=== PATIENT | female | born 1980 ===

== ENCOUNTER 2017-02-16 12:19 | Emergency (ER) | payer OTHER ==
[2017-02-16 12:25] VITALS: RESP 16
--- NOTE | 2017-02-16 13:02 | ED PDOC ---
HPI: General Adult Chief Complaint (Provider): Painful Lump in the neck History Per: Patient History/Exam Limitations: no limitations Onset/Duration Of Symptoms: Days Have you had recent travel within the past 21 days to any of the following countries: [place], [place], [place] or [place]?: No Current Symptoms Are (Timing): Still Present <Alla Villa - Last Filed: 02/16/17 14:38> <Kailee Koch - Last Filed: 02/16/17 15:26> Time Seen by Provider: 02/16/17 12:31 Chief Complaint (Nursing): Abnormal Skin Integrity Additional Complaint(s): Rose Mary Grace, a 37 year old female, presents to the ED with a painful lump in her neck x2 weeks. The patient states that she noticed the bump turned red and this prompted her to visit her community clinic, who then told her to go the emergency department. She states when she first noticed the lump it was neither red nor painful. The patient states that she thought the bump was because of stress. She reports that she thought heat or cold would make the lump go away but non of those options worked. She further states that she started to have a fever but took tylenol and it went away. Denies nausea, vomiting but does note some dizziness. The patient further states that she also had a sore throat and few days of diarrhea. Battery Tester: Hari Camejo ([id number]) (Alla Villa) Past Medical History Reviewed: Historical Data, Nursing Documentation, Vital Signs - Medical History PMH: No Chronic Diseases - Surgical History Surgical History: Cholecystectomy Other surgeries: Breast reduction surgery; Tumor removal from uterus. - Family History Family History: States: Unknown Family Hx - Living Arrangements Living Arrangements: With Family - Social History Current smoker - smoking cessation education provided: No Alcohol: None Drugs: Denies - Immunization History Hx Tetanus Toxoid Vaccination: No Hx Influenza Vaccination: No <Alla Villa - Last Filed: 02/16/17 14:38> <Kailee Koch - Last Filed: 02/16/17 15:26> Vital Signs: Last Vital Signs Temp 98.2 F 02/16/17 12:22 Pulse 82 02/16/17 12:22 Resp 16 02/16/17 12:22 BP 129/59 L 08/18/17 12:22 Pulse Ox 99 02/16/17 14:42 - Home Medications Home Medications: Ambulatory Orders Medication Instructions Recorded Cephalexin [cephalexin] 500 mg PO BID #20 cap 02/16/17 Clindamycin [Cleocin] 300 mg PO TID #30 cap 02/16/17 - Allergies Allergies/Adverse Reactions: Allergies Allergy/AdvReac Type Severity Reaction Status Date / Time No Known Allergies Allergy Verified 02/16/17 13:01 Review of Systems ROS Statement: Except As Marked, All Systems Reviewed And Found Negative Constitutional: Positive for: Fever Gastrointestinal: Positive for: Diarrhea (diarrhea for a few days). Negative for: Nausea, Vomiting Musculoskeletal: Positive for: Other Skin: Positive for: Other (Painful lump in neck) <Alla Villa - Last Filed: 02/16/17 14:38> Physical Exam - Reviewed Nursing Documentation Reviewed: Yes Vital Signs Reviewed: Yes - Physical Exam Appears: Positive for: Non-toxic, No Acute Distress Head Exam: Positive for: ATRAUMATIC, NORMAL INSPECTION, NORMOCEPHALIC Skin: Positive for: Normal Color, Warm, Dry. Negative for: Rash Eye Exam: Positive for: Normal appearance, EOMI, PERRL ENT: Positive for: Normal ENT Inspection. Negative for: Sinus Pain/Drainage ( no sinus tenderness), Pharyngeal Erythema Neck: Positive for: Supple, Decreased ROM (Right side SCM along lymph nodes;no swelling; non-mobile; no other lymphnodes; no erythema;some tenderness). Negative for: Normal (No C-spine tenderness;No lymph node swelling) Cardiovascular/Chest: Positive for: Regular Rate, Rhythm, Chest Non Tender. Negative for: Tachycardia Respiratory: Positive for: Normal Breath Sounds. Negative for: Rales, Rhonchi, Wheezing, Respiratory Distress Gastrointestinal/Abdominal: Positive for: Normal Exam, Bowel Sounds, Soft. Negative for: Tenderness, Mass, Guarding, Rebound Back: Positive for: Normal Inspection. Negative for: L CVA Tenderness, R CVA Tenderness Extremity: Positive for: Normal ROM. Negative for: Tenderness, Pedal Edema, Deformity, Swelling Neurologic/Psych: Positive for: Alert, Oriented, Gait. Negative for: Motor/ Sensory Deficits <Alla Villa - Last Filed: 02/16/17 14:38> - Laboratory Results Result Diagrams: 02/16/17 13:23 02/16/17 13:23 - ECG O2 Sat by Pulse Oximetry: 99 (RA) Pulse Ox Interpretation: Normal - Radiology X-Ray: Read By Radiologist Nexus Criteria: Negative <Alla Villa - Last Filed: 02/16/17 14:38> - Laboratory Results Result Diagrams: 02/16/17 13:23 02/16/17 13:23 <Kailee Koch - Last Filed: 02/16/17 15:26> Medical Decision Making <Alla Villa - Last Filed: 02/16/17 14:38> <Kailee Koch - Last Filed: 02/16/17 15:26> Medical Decision Makin Initial Impression: 37 year old female presenting with painful lump in the neck Initial Plan: * CT Neck Soft tissue w/o contrast * Comp Metabolic Panel * Upreg * CBC * Blood Culture * Reevaluation base don CT results and fairly unremarkable labs results will treat as a superficial abscess and give IV abx. however pt will need f/u with pmd for monitoring and further eval Scribe Attestation Documented by Lulú Phillips acting as a scribe for Alla Villa PA-C. MD Scribe Attestation All medical record entries made by the Scribe were at my direction and personally dictated by me. I have reviewed the chart and agree that the record accurately reflects my personal performance of the history, physical exam, medical decision making, and the department course for this patient. I have also personally directed, reviewed, and agree with the discharge instructions and disposition. (Alla Villa) CT showed "There is an elliptical shaped proteinaceous fluid collection located within the right posterior neck that exhibits a thick walled rim of enhancement an central low-attenuation. This could represent proteinaceous fluid such as phlegmon or abscess possibly of bacterial origin however tuberculosis should be excluded as well. . The possibility of malignancy or necrotic malignant adenopathy not excluded. . Note that these findings were discussed with emergency room PA Mamta Villa at approximately 2:40 p.m. with written down and read back verification." Per PA, patient was given detailed follow-up instructions. (Kailee Koch) Disposition - Patient ED Disposition Is Patient to be Admitted: No Counseled Patient/Family Regarding: Studies Performed, Diagnosis, Need For Followup, Rx Given - Disposition Disposition: Routine/Home Disposition Time: 14:41 <Alla Villa - Last Filed: 02/16/17 14:38> <Kailee Koch - Last Filed: 02/16/17 15:26> - Clinical Impression Clinical Impression: Abscess - Disposition Referrals: [facility] [Outside] [facility] [Outside] Condition: STABLE Prescriptions: Cephalexin [cephalexin] 500 mg PO BID #20 cap Clindamycin [Cleocin] 300 mg PO TID #30 cap Instructions: Abscess (ED) Forms: [employer] (Serbian), [facility] ED School/Work Excuse Print Language: CITIZEN OF [place]
[2017-02-16 13:31] LABS: BASO % 0.5 % (0.0-2.0); EOS # 0.1 K/uL (0.0-0.7); LYMPH # 1.5 K/uL (1.0-4.3); LYMPH % 22.8 % (20.0-40.0); MEAN CELL VOLUME 81.8 fl (81.0-99.0); MEAN CORPUSCULAR HEMOGLOBIN 26.6 pg (27.0-31.0); MEAN CORPUSCULAR HGB CONC 32.5 g/dL (33.0-37.0); MEAN PLATELET VOLUME 7.5 fl (7.2-11.7); MONO # 0.4 K/uL (0.0-0.8); MONO % 6.8 % (0.0-10.0); NEUT # 4.6 K/uL (1.8-7.0); NEUT % 68.9 % (50.0-75.0); RED CELL DISTRIBUTION WIDTH 13.7 % (11.5-14.5); WHITE BLOOD COUNT 6.6 K/uL (4.8-10.8)
[2017-02-16 13:41] LABS: ALB/GLOB RATIO 1.4 (1.0-2.1); ALKALINE PHOSPHATASE 84 U/L (38-126); ALT/SGPT 28 U/L (9-52); AST/SGOT 25 U/L (14-36); BILIRUBIN,TOTAL 0.4 mg/dl (0.2-1.3); BLOOD UREA NITROGEN 9 mg/dl (7-17); CALCIUM 9.5 mg/dL (8.4-10.2); CARBON DIOXIDE 27 mmol/L (22-30); CHLORIDE 103 mmol/L (98-107); GFR AFRICAN-AMERICAN > 60; GLUCOSE,RANDOM 95 mg/dL (65-105); POTASSIUM 3.9 MMOL/L (3.6-5.0); SODIUM 142 mmol/l (132-148); TOTAL PROTEIN 7.6 G/DL (6.3-8.2)
[2017-02-16] MEDS ORDERED: Iohexol 300 100 ML IJ ONE (13:59)
--- NOTE | 2017-02-16 14:49 | CT ---
PROCEDURE: CT scan neck dated 02/16/2017 HISTORY: Lesions noted to right side of neck/painful/nonmobile COMPARISON: No prior TECHNIQUE: Contiguous helical/ transaxial sections of the neck performed following intravenous injection of approximately 95 cc Omnipaque 300 contrast material. Additional 2 dimensional sagittal and coronal reformats provided. Radiation dose: DLP 392.25 mGy-cm This CT exam was performed using one or more of the following dose reduction techniques: Automated exposure control, adjustment of the mA and/or kV according to patient size, and/or use of iterative reconstruction technique. . FINDINGS: Findings: Current study reveals the presence of a relatively large approximately 2.8 x 1.7 x 1.95 cm elliptical shaped low-attenuation focus in the posterior aspect right neck that exhibits a thick walled rind of enhancement and central area of low attenuation. Hounsfield units centrally range from single to mid-upper 20s suggesting proteinaceous fluid. This could represent a subcutaneous phlegmon/abscess ; rule out bacterial versus possible sequela of granulomatous disease process such as tuberculosis. . Malignancy and/or necrotic adenopathy would be somewhat less likely in this age group though not completely excluded. Clinical correlation recommended. There is also small calcific density along the at anterior margin of this suspected phlegmon/abscess. Overlying mild skin thickening noted. No other from suspected proteinaceous fluid collections. There are multiple relatively small bilateral cervical lymph nodes within posterior cervical, jugulodigastric, submandibular and submental regions bilaterally. One or 2 of these left-sided posterior cervical focal lymph nodes contain calcification. Left-sided posterior cervical lymph nodes also appear to contain calcification cervical. Parotid and submandibular glands unremarkable. Thyroid gland appears normal though poorly seen due to crossing streak and beam hardening artifact arising from dense clavicles and shoulder girdles. The cervical vasculature unremarkable. The oral cavity is partially obscured by crossing streak and beam hardening artifact arising from dental amalgam. The palatine tonsils appear relatively normal without evidence of peritonsillar abscess formation. Some asymmetry of the vallecular likely due to some encroachment from lingular tonsils and possibly some residual/ retained secretion. Free margin of the epiglottis unremarkable. Pyriform sinuses are relatively symmetric. Lung apices are clear. Visualized paranasal sinuses are well-developed. Moderate mucosal thickening left sphenoid sinus with sclerosis and thickening of the left posterolateral wall. . Mastoid air complexes are clear. There appears to be some minimal biapical pleural thickening however the lung apices are otherwise clear without evidence of pneumothorax. Impression: There is an elliptical shaped proteinaceous fluid collection located within the right posterior neck that exhibits a thick walled rim of enhancement an central low-attenuation. This could represent proteinaceous fluid such as phlegmon or abscess possibly of bacterial origin however tuberculosis should be excluded as well. . The possibility of malignancy or necrotic malignant adenopathy not excluded. . Note that these findings were discussed with emergency room SHARYN Villa at approximately 2:40 p.m. with written down and read back verification.
[2017-02-16] MEDS ORDERED: cefTRIAXone (Rocephin) 1 gm Inj ONE (15:02)
[2017-02-16 16:33] VITALS: BP 122/63; PULSE 76; TEMP 98.3; O2SAT 100
== END 2017-02-16 16:32 | disposition home or self-care (01) ==
LOC: H.ER 12:19
DX: L02.11 Cutaneous abscess of neck (principal)
CPT/HCPCS: 70491; 80053; 81025; 85025; 87040; 96365; 99283; J0696; Q9967

== ENCOUNTER 2017-03-10 14:17 | Emergency (ER) | payer SELFPAY ==
[2017-03-10 14:25] VITALS: TEMP 98; O2SAT 99
[2017-03-10] MEDS ORDERED: Sodium Chloride 0.9% 1,000 ML IV STA (15:05)
--- NOTE | 2017-03-10 15:47 | ED PDOC ---
HPI: CCC, URI, Sore Throat Time Seen by Provider: 03/10/17 14:17 Chief Complaint (Nursing): Wound Check Chief Complaint (Provider): Wound Check History Per: Patient History/Exam Limitations: no limitations Onset/Duration Of Symptoms: Days (x9) Additional Complaint(s): Rose Mary Grace is a 37 year old female who presents to the emergency department for a wound evaluation of a right neck abscess associated with cough , urine frequency, generalized body aches and throat pain that was incised and drained 9 days ago. Denied any fever or chills. Patient stated she was recently discharged from [facility] and currently on Omnicef but advised by PCP to return to ED for a re-evaluation of wound. PMD: Giorgio Reilly MD Past Medical History Reviewed: Historical Data, Nursing Documentation, Vital Signs Vital Signs: Last Vital Signs Temp 98 F 03/10/17 14:21 Pulse 94 H 03/10/17 14:21 Resp 18 03/10/17 14:21 BP 145/75 03/10/17 14:21 Pulse Ox 99 03/10/17 15:56 - Medical History PMH: Denies: Chronic Kidney Disease - Surgical History Surgical History: Cholecystectomy - Family History Family History: States: Unknown Family Hx - Social History Current smoker - smoking cessation education provided: No Alcohol: None Drugs: Denies - Immunization History Hx Tetanus Toxoid Vaccination: No Hx Influenza Vaccination: No - Home Medications Home Medications: Ambulatory Orders Medication Instructions Recorded No Known Home Med 03/02/17 - Allergies Allergies/Adverse Reactions: Allergies Allergy/AdvReac Type Severity Reaction Status Date / Time No Known Allergies Allergy Verified 02/16/17 13:01 Review of Systems ROS Statement: Except As Marked, All Systems Reviewed And Found Negative Constitutional: Positive for: Other (generalized body aches). Negative for: Fever, Chills ENT: Positive for: Throat Pain, Other (right neck abscess) Respiratory: Positive for: Cough Genitourinary Female: Positive for: Frequency Physical Exam - Reviewed Nursing Documentation Reviewed: Yes Vital Signs Reviewed: Yes - Physical Exam Appears: Positive for: Well, Non-toxic, No Acute Distress Head Exam: Positive for: ATRAUMATIC, NORMAL INSPECTION, NORMOCEPHALIC ENT: Positive for: Pharynx Is (mildly irritated). Negative for: Normal ENT Inspection Neck: Positive for: Normal (healing open abscess wound) Cardiovascular/Chest: Positive for: Regular Rate, Rhythm. Negative for: Chest Non Tender, Other (drainage or induration) Respiratory: Positive for: Normal Breath Sounds. Negative for: Decreased Breath Sounds, Crackles, Rales, Rhonchi, Wheezing, Respiratory Distress Neurologic/Psych: Positive for: Alert, manager therapy II-XII, Oriented - Laboratory Results Result Diagrams: 03/10/17 15:45 03/10/17 15:45 - ECG O2 Sat by Pulse Oximetry: 99 (RA) Pulse Ox Interpretation: Normal - Radiology X-Ray: Read By Radiologist (tonie) - Progress ED Course And Treament: NS 1 LITER WIDE OPEN TORADOL 15 MG IV X 1 DOSE RAPID STREP: NEG PATIENT IMPROVED IN ED. Medical Decision Making Medical Decision Making: Initial Impression: Wound check Initial Plan: * VBG * BMP * Urine dipstick * Urine * CBC * CXR * Toradol 15mg IVP * NS 1,000ml IV per 1,000mls/hr * Blood culture * Urine culture * Rapid strep * Urinalysis ~ Scribe Attestation: Documented by Kiersten Sarmiento, acting as a scribe for Stephanie Doss PA-C. Provider Scribe Attestation: All medical record entries made by the Scribe were at my direction and personally dictated by me. I have reviewed the chart and agree that the record accurately reflects my personal performance of the history, physical exam, medical decision making, and the department course for this patient. I have also personally directed, reviewed, and agree with the discharge instructions and disposition. Disposition - Clinical Impression Clinical Impression: Viral illness - Patient ED Disposition Is Patient to be Admitted: No - Disposition Disposition: Routine/Home Disposition Time: 17:51 Condition: FAIR Instructions: Viral Syndrome (ED) Forms: [employer] (Vincentian), [facility] ED School/Work Excuse Print Language: SLOVAK
[2017-03-10 15:56] LABS: VENOUS BLOOD GAS BASE EXCESS 4.5 mmol/L (0.0-2.0); VENOUS BLOOD GAS PCO2 59 mmHg (40-60); VENOUS BLOOD PH 7.34 (7.32-7.43)
[2017-03-10 16:02] LABS: BASO % 0.6 % (0.0-2.0); EOS # 0.1 K/uL (0.0-0.7); EOS % 1.6 % (0.0-4.0); HEMATOCRIT 37.1 % (34.0-47.0); LYMPH # 1.8 K/uL (1.0-4.3); LYMPH % 34.3 % (20.0-40.0); MEAN CELL VOLUME 81.8 fl (81.0-99.0); MEAN CORPUSCULAR HEMOGLOBIN 26.6 pg (27.0-31.0); MEAN CORPUSCULAR HGB CONC 32.5 g/dL (33.0-37.0); MEAN PLATELET VOLUME 7.7 fl (7.2-11.7); MONO # 0.4 K/uL (0.0-0.8); MONO % 7.1 % (0.0-10.0); NEUT % 56.4 % (50.0-75.0); RED CELL DISTRIBUTION WIDTH 13.8 % (11.5-14.5); WHITE BLOOD COUNT 5.4 K/uL (4.8-10.8)
[2017-03-10 16:03] LABS: RBC URINE 3 /hpf (0-3); URINE BILIRUBIN NEGATIVE (NEGATIVE); URINE BLOOD NEGATIVE (NEGATIVE); URINE COLOR YELLOW (YELLOW); URINE GLUCOSE (UA) NEG (Normal); URINE KETONE TRACE mg/dL (NEGATIVE); URINE LEUKOCYTE ESTERASE NEG Leu/uL (Negative); URINE PROTEIN NEGATIVE (NEGATIVE); URINE UROBILINOGEN 0.2-1.0 mg/dL (0.2-1.0); WBC URINE 1 /hpf (0-5)
[2017-03-10 16:07] LABS: BLOOD UREA NITROGEN 13 mg/dl (7-17); CALCIUM 9.3 mg/dL (8.4-10.2); CARBON DIOXIDE 27 mmol/L (22-30); CHLORIDE 104 mmol/L (98-107); GFR AFRICAN-AMERICAN > 60; GLUCOSE,RANDOM 92 mg/dL (65-105); POTASSIUM 4.1 MMOL/L (3.6-5.0); SODIUM 141 mmol/l (132-148)
--- NOTE | 2017-03-10 16:17 | RAD ---
HISTORY: routine COMPARISON: No prior. TECHNIQUE: Chest PA and lateral FINDINGS: LUNGS: No active pulmonary disease. PLEURA: No significant pleural effusion identified. No pneumothorax apparent. CARDIOVASCULAR: Normal. OSSEOUS STRUCTURES: No significant abnormalities. VISUALIZED UPPER ABDOMEN: Normal. OTHER FINDINGS: None. IMPRESSION: No active disease.
[2017-03-10 18:05] VITALS: BP 117/83; PULSE 77; RESP 16
== END 2017-03-10 18:03 | disposition home or self-care (01) ==
LOC: H.ER 14:17
DX: Z48.00 Encounter for change or removal of nonsurgical wound dressing (principal); R05 Cough; B34.9 Viral infection, unspecified
CPT/HCPCS: 71020; 80048; 81003; 81025; 82803; 85025; 87040; 87070; 87086; 87430; 96361; 96374; 99284; J1885; J7040

== ENCOUNTER 2017-04-28 11:56 | Emergency (ER) | payer OTHER ==
[2017-04-28 12:00] VITALS: BP 117/54; PULSE 93; RESP 16; TEMP 98; O2SAT 100
[2017-04-28 12:20] VITALS: BMI 21.9
--- NOTE | 2017-04-28 12:26 | ED PDOC ---
Lower Extremity Pain/Injury Time Seen by Provider: 04/28/17 12:04 Chief Complaint (Nursing): Lower Extremity Problem/Injury Chief Complaint (Provider): Lower Extremity Problem/Injury History Per: Patient History/Exam Limitations: no limitations Onset/Duration Of Symptoms: Days (x4 days) Current Symptoms Are (Timing): Still Present Additional Complaint(s): A 37 y/o female presents to the emergency department complaining right ankle pain and swelling. Three days ago, she was stepping off the the bus when she felt popping in her right knee. Patient took Tylenol with no improvement. No other injuries or complaints. Past Medical History Reviewed: Historical Data, Nursing Documentation, Vital Signs Vital Signs: Last Vital Signs Temp 98.0 F 04/28/17 11:59 Pulse 93 H 04/28/17 11:59 Resp 16 04/28/17 11:59 BP 117/54 L 04/28/17 11:59 Pulse Ox 100 04/28/17 11:59 - Medical History PMH: No Chronic Diseases Denies: Chronic Kidney Disease - Surgical History Surgical History: Cholecystectomy Other surgeries: Ovarian Cyst - Family History Family History: States: Unknown Family Hx - Living Arrangements Living Arrangements: With Family - Social History Current smoker - smoking cessation education provided: No Alcohol: None Drugs: Denies - Immunization History Hx Tetanus Toxoid Vaccination: No Hx Influenza Vaccination: No - Home Medications Home Medications: Ambulatory Orders Medication Instructions Recorded Ibuprofen [Motrin Tab] 800 mg PO Q6H PRN #20 tab 04/28/17 - Allergies Allergies/Adverse Reactions: Allergies Allergy/AdvReac Type Severity Reaction Status Date / Time No Known Allergies Allergy Verified 02/16/17 13:01 Review of Systems Constitutional: Negative for: Fever Musculoskeletal: Positive for: Other (Right ankle swollen and pain in right knee ) Physical Exam - Reviewed Nursing Documentation Reviewed: Yes Vital Signs Reviewed: Yes - Physical Exam Appears: Positive for: Non-toxic, No Acute Distress Cardiovascular/Chest: Positive for: Regular Rate, Rhythm. Negative for: Murmur Respiratory: Positive for: Normal Breath Sounds. Negative for: Respiratory Distress Gastrointestinal/Abdominal: Positive for: Normal Exam, Bowel Sounds, Soft. Negative for: Tenderness Extremity: Positive for: Tenderness (tenderness to right lateral malleolus. Tenderness to medial and inferior right knee), Swelling (mild swelling to medial and inferior right knee). Negative for: Normal ROM (Decrease right knee flexion secondary to pain. FROM of right ankle ) Neurologic/Psych: Positive for: Alert, Oriented (x3) - ECG O2 Sat by Pulse Oximetry: 100 (RA) Pulse Ox Interpretation: Normal - Radiology X-Ray: Interpreted by Me, Viewed By Me X-Ray Interpretation: Other (No obvious fracture of the right knee) - Other Rad X-ray right ankle X-Ray: Interpreted by Me, Viewed By Me X-Ray Interpretation: No obvious fracture or dislocation Medical Decision Making Medical Decision Making: Time: 12:10 Initial Plan: --Knee x-ray --Right Ankle x-ray --Ibuprofen 600mg PO Time: 12:37 Clinical Impression: Ankle Injury, Knee Injury Upon provider evaluation patient is medically stable, and requires no further treatment in the ED at this time. Patient will be discharged home with Rx for Motrin 800mg PO. Counseling was provided and all questions were answered regarding diagnosis and need for follow up with PMD. There is agreement to discharge plan. Return if symptoms persist or worsen. Scribe Attestation: Documented by Pamela Doss , acting as a scribe for Yany Green PA-C Provider Scribe Attestation: All medical record entries made by the Scribe were at my direction and personally dictated by me. I have reviewed the chart and agree that the record accurately reflects my personal performance of the history, physical exam, medical decision making, and the department course for this patient. I have also personally directed, reviewed, and agree with the discharge instructions and disposition. Disposition - Clinical Impression Clinical Impression: Ankle injury, Knee injury - Patient ED Disposition Is Patient to be Admitted: No Counseled Patient/Family Regarding: Studies Performed, Diagnosis, Need For Followup, Rx Given - Disposition Disposition: Routine/Home Disposition Time: 13:05 Condition: STABLE Prescriptions: Ibuprofen [Motrin Tab] 800 mg PO Q6H PRN #20 tab PRN Reason: Pain Instructions: Ankle Sprain (ED) Forms: [employer] (Somali), [facility] ED School/Work Excuse
--- NOTE | 2017-04-28 13:02 | RAD ---
PROCEDURE: Right Knee Radiographs. HISTORY: knee pain, pop sensation when twisted ankle COMPARISON: None. FINDINGS: BONES: There is no acute displaced fracture or bone destruction. Bone alignment is normal. There is mild periarticular bone demineralization. JOINTS: There is mild degenerative osteoarthrosis in the medial compartment. JOINT EFFUSION: There is a small suprapatellar joint effusion. OTHER FINDINGS: None. IMPRESSION: No acute fracture or dislocation. 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
--- NOTE | 2017-04-28 13:02 | RAD ---
PROCEDURE: Right Ankle Radiographs. HISTORY: ankle pain, twisted 3 days ago COMPARISON: None FINDINGS: BONES: Bone alignment and mineralization are normal. There is no acute fracture or bone destruction. JOINTS: Normal. Ankle mortise maintained. Talar dome intact SOFT TISSUES: Normal. OTHER FINDINGS: None. IMPRESSION: No acute fracture or dislocation.
== END 2017-04-28 13:32 | disposition home or self-care (01) ==
LOC: H.ER 11:56
DX: S89.92XA Unspecified injury of left lower leg, initial encounter (principal); S99.911A Unspecified injury of right ankle, initial encounter; X50.9XXA Other and unspecified overexertion or strenuous movements or postures, initial encounter; Y92.89 Other specified places as the place of occurrence of the external cause

== ENCOUNTER 2017-05-31 07:02 | Day surgery (SDC) | payer SELFPAY ==
[2017-05-29 09:57] VITALS: BMI 25.2
[2017-05-31] MEDS ORDERED: Succinylcholine 200 mg/10 ml Inj IV ONE (07:30)
[2017-05-31] MEDS ORDERED: Midazolam 2 MG/2 ML VIAL ONE ×2 (07:30→12:37)
[2017-05-31] MEDS ORDERED: Propofol 10 mg/ml Inj (20 ML) ONE ×2 (07:35→12:43)
[2017-05-31] MEDS ORDERED: Phenylephrine 10 mg/ml Inj ONE (07:35)
[2017-05-31] MEDS ORDERED: ePHEDrine 50 mg/ml Inj ONE (07:35)
--- NOTE | 2017-05-31 07:55 | CP.SDSHP ---
Same Day Surgery H & P - History Proposed Procedure: excision of right lateral neck mass Pre-Op Diagnosis: lateral right neck mass - Previous Medical/Surgical History Pain: 2.Mild Pain Comments: neck mass first noticed 3 months ago, progressively enlarged Previous Surgical History: cholecystectomy, in vitro fertilization, ovarian cyst removal - Allergies Allergies: Allergies No Known Allergies Allergy (Verified 02/16/17 13:01) - Physical Exam General Appearance: WDWN NAD Vital Signs: Vital Signs 05/31/17 05/31/17 07:44 07:48 Temperature 98.4 F Pulse Rate 70 70 Respiratory 20 Rate Blood Pressure 104/59 L O2 Sat by Pulse 97 Oximetry Mental Status: Alert & Oriented x3 Neuro: WNL Heart: WNL Lungs: WNL GI: WNL - {Optional Preform as Required} Abdomen: WNL ENT: Other - Impression Impression: right lateral neck mass. currently no purulent discharge Pt. Evaluated Today:Candidate for Anesthesia & Procedure: Yes - Date & Time Date: 05/31/17 Time: 07:50 Short Stay Discharge - Short Stay Discharge Admitting Diagnosis/Reason for Visit: L03.221 Disposition: HOME/ ROUTINE Referrals: FAMILY PROVIDER,NO [Primary Care Provider] -
[2017-05-31] MEDS ORDERED: Lactated Ringer's 1,000 ML IV ONE (09:05)
[2017-05-31] MEDS ORDERED: Lidocaine 2% w Epi 1:100,000 Inj IJ ONE (12:19)
[2017-05-31] MEDS ORDERED: ceFAZolin IV 1 gm in Dextrose 0 GM/0 ML BAG IVPB ONE (12:19)
[2017-05-31] MEDS ORDERED: Lidocaine 1% Inj (20ml) ONE (12:19)
[2017-05-31] MEDS ORDERED: Lactated Ringer's 1,000 ML IV SCH (13:15)
--- NOTE | 2017-05-31 13:32 | PCM.SURG1 ---
Surgeon's Initial Post Op Note - Surgeon's Notes Surgeon: Dr Colon Gis Administrator: Dr Gonzalez PGY3 Type of Anesthesia: General IV Anesthesia Administered By: Dr Sultana Pre-Operative Diagnosis: right neck cyst Operative Findings: as above Post-Operative Diagnosis: as above Operation Performed: Excision of right lateral neck cyst Specimen/Specimens Removed: cyst Estimated Blood Loss: EBL {In ML}: 5 Blood Products Given: N/A Drains Used: No Drains Post-Op Condition: Good Date of Surgery/Procedure: 05/31/17 Time of Surgery/Procedure: 13:32
[2017-05-31 13:48] VITALS: RESP 18
--- NOTE | 2017-05-31 14:25 | OP ---
PROCEDURE DATE: 05/31/2017 SURGEON: Melecio Colon MD. PANTOGRAPH WATCHER: Dr. Gonzalez. TYPE OF ANESTHESIA: General. ANESTHESIA ADMINISTERED BY: Dr. Sultana. PREOPERATIVE DIAGNOSIS: Right neck cyst. POSTOPERATIVE DIAGNOSIS: Right neck cyst. PROCEDURE: Excision of right lateral neck cyst. DESCRIPTION OF OPERATION: With the patient in the supine position, having received IV sedation, the right neck was prepped and draped in the usual sterile manner. The patient had a mildly hypertrophic diagonal scar in the lower posterior triangle of the right neck with a small sinus opening and the skin surrounding this was infiltrated with 1% lidocaine. Of note, the patient has had multiple incisions and drainages in this area with chronic drainage and excision of an underlying cyst or mass. An elliptical incision was made around the area of the scar and within the subcutaneous tissue, there was what appeared to be inspissated sebaceous material, which was sharply dissected away from the surrounding subcutaneous tissue and this was excised along with the ellipse of overlying skin. No deeper attachments were identified. The operative site was examined for hemostasis and the incision was closed with a few subcutaneous interrupted sutures of 3-0 Vicryl, followed by running subcuticular suture of 4-0 Monocryl and Steri-Strips. Dry sterile dressing was applied. The patient tolerated the procedure well and transferred to recovery room in stable condition. Estimated blood loss for the procedure was 5 mL. Melecio Colon MD
[2017-05-31 15:39] VITALS: BP 110/70; PULSE 77; TEMP 98; O2SAT 100
== END 2017-05-31 17:30 | disposition home or self-care (01) ==
LOC: H.OPSURG 07:02
PROVIDERS: ATTEND Specialist
DX: L03.221 Cellulitis of neck (principal)
CPT/HCPCS: 11422; 12042; 88305; J2001; J2250; J2704; J3010; J7030; J7120

== ENCOUNTER 2017-07-03 11:34 | Emergency (ER) | payer SELFPAY ==
[2017-07-03 11:34] VITALS: BMI 25.2
[2017-07-03 11:51] VITALS: BP 117/53; PULSE 80; RESP 20; TEMP 97; O2SAT 98
--- NOTE | 2017-07-03 12:27 | ED PDOC ---
Upper Extremity Pain/Injury Time Seen by Provider: 07/03/17 12:13 Chief Complaint (Nursing): Upper Extremity Problem/Injury Chief Complaint (Provider): Right Shoulder Pain History Per: Patient History/Exam Limitations: no limitations Onset/Duration Of Symptoms: Days Current Symptoms Are (Timing): Still Present Quality: "Pain" Additional Complaint(s): 37 year old female presents to the ED with right shoulder pain. The patient reports that 2 months ago she had an incision and drainage performed on an abscess that was on her right neck and soon after the pain her shoulder began. She states that she took tylenol for pain but it offered minimal relief. Denies chest pain, back pain. PMD: Melecio Stoll Past Medical History Reviewed: Historical Data, Nursing Documentation, Vital Signs Vital Signs: Last Vital Signs Temp 97.0 F L 07/03/17 11:51 Pulse 80 07/03/17 11:51 Resp 20 07/03/17 11:51 BP 117/53 L 07/03/17 11:51 Pulse Ox 98 07/03/17 11:51 - Medical History PMH: No Chronic Diseases Denies: Chronic Kidney Disease - Surgical History Surgical History: Cholecystectomy - Family History Family History: States: Unknown Family Hx - Living Arrangements Living Arrangements: With Family - Immunization History Hx Tetanus Toxoid Vaccination: No Hx Influenza Vaccination: No - Home Medications Home Medications: Ambulatory Orders Medication Instructions Recorded No Known Home Med 05/29/17 Cyclobenzaprine [Cyclobenzaprine 10 mg PO BID #14 tab 07/03/17 HCl] Naproxen 500 mg PO TID #30 tab 07/03/17 - Allergies Allergies/Adverse Reactions: Allergies Allergy/AdvReac Type Severity Reaction Status Date / Time No Known Allergies Allergy Verified 02/16/17 13:01 Review of Systems Cardiovascular: Negative for: Chest Pain Gastrointestinal: Negative for: Abdominal Pain Musculoskeletal: Positive for: Shoulder Pain (right shoulder). Negative for: Back Pain Physical Exam - Reviewed Nursing Documentation Reviewed: Yes Vital Signs Reviewed: Yes - Physical Exam Appears: Positive for: Non-toxic, No Acute Distress Head Exam: Positive for: NORMAL INSPECTION Skin: Positive for: Normal Color, Warm, Dry. Negative for: Rash Eye Exam: Positive for: Normal appearance, EOMI, PERRL. Negative for: Nystagmus Neck: Positive for: Normal (No C-spine tenderness), Painless ROM, Supple Extremity: Positive for: Normal ROM (normal ROM of right hsoulder; no clavicular tenderess; good pronation and supination of right shoulder.). Negative for: Tenderness, Deformity, Swelling Neurologic/Psych: Positive for: Alert, Oriented - ECG O2 Sat by Pulse Oximetry: 98 (RA) Pulse Ox Interpretation: Normal Medical Decision Making Medical Decision Makin Initial Impression 37 y/o female presenting with right shoulder pain Initial Plan: * Toradol 30mg IM * Reevaluation 1236 Patient will be discharged home and iwll follow up with PMD for physical therapy. Documented by Lulú Phillips acting as a scribe for Alla Villa PA-C. All medical record entries made by the Scribe were at my direction and personally dictated by me. I have reviewed the chart and agree that the record accurately reflects my personal performance of the history, physical exam, medical decision making, and the department course for this patient. I have also personally directed, reviewed, and agree with the discharge instructions and disposition. Disposition - Clinical Impression Clinical Impression: Cervical radicular pain - Patient ED Disposition Is Patient to be Admitted: No Counseled Patient/Family Regarding: Diagnosis, Need For Followup - Disposition Disposition: Routine/Home Disposition Time: 17:10 Condition: STABLE Prescriptions: Cyclobenzaprine [Cyclobenzaprine HCl] 10 mg PO BID #14 tab Naproxen 500 mg PO TID #30 tab Instructions: Cervical Strain (DC) Forms: [employer] ([place]an) - POA Present On Arrival: None
== END 2017-07-03 13:25 | disposition home or self-care (01) ==
LOC: H.ER 11:34
DX: M54.12 Radiculopathy, cervical region (principal)
CPT/HCPCS: 96372; 99282; J1885

== ENCOUNTER 2017-12-06 17:56 | Emergency (ER) | payer SELFPAY ==
[2017-12-06 17:56] VITALS: BMI 25.2
[2017-12-06 18:03] VITALS: BP 109/68; PULSE 81; RESP 16; TEMP 98.6; O2SAT 99
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
--- NOTE | 2017-12-07 08:03 | RAD ---
PROCEDURE: Radiographs of the Right Shoulder HISTORY: pain COMPARISON: No prior. FINDINGS: BONES: No acute fracture or destructive bony lesion identified. JOINTS: Normal. Glenohumeral and acromioclavicular joints preserved. No osteoarthritis. SOFT TISSUES: Normal. OTHER FINDINGS: None. IMPRESSION: Normal radiographs of the right shoulder.
== END 2017-12-06 19:59 | disposition home or self-care (01) ==
LOC: H.ER 17:56
DX: S43.401A Unspecified sprain of right shoulder joint, initial encounter (principal); X50.9XXA Other and unspecified overexertion or strenuous movements or postures, initial encounter; Y99.0 Civilian activity done for income or pay

== ENCOUNTER 2018-09-17 15:03 | Emergency (ER) | payer OTHER, SELFPAY ==
[2018-09-17 15:04] VITALS: BMI 25.2
[2018-09-17 15:26] VITALS: BP 114/71; PULSE 85; RESP 16; TEMP 99.3; O2SAT 97
[2018-09-17] MEDS ORDERED: Morphine 4 MG/ML VIAL IVP STA (15:55)
[2018-09-17] MEDS ORDERED: Sodium Chloride 0.9% 1,000 ML IV STA (15:55)
--- NOTE | 2018-09-17 16:43 | ED PDOC ---
HPI: Female Pain Time Seen by Provider: 09/17/18 15:32 Chief Complaint (Nursing): Abdominal Pain Chief Complaint (Provider): Pelvic Pain History Per: Patient History/Exam Limitations: no limitations Onset/Duration Of Symptoms: Other (one month ) Current Symptoms Are (Timing): Still Present Quality Of Discomfort: "Pain" Additional Complaint(s): 38 year old female with a history of endometriosis presents to the ED complaining of pelvic pain onset for one month. Patient went to her PMD who ordered a CT scan that demonstrated a large mass consisted with possible Tubo- ovarian abscesses (TOA) or ovarian tumor. She attempted to to make an daina ointment with her OBGYN but she could not receive an appointment until September 26. The pain became more severe in the pelvic area and she took midol and tylenol without relief. Currently, patient has dysuria and hesitancy but denies vaginal bleed or discharge, hematuria or chills. Patient has never been . She was also given Flagyl for vaginitis before the CT scan. PMD: Rene Jalloh Abnormal Vaginal Bleeding: No Past Medical History Reviewed: Historical Data, Nursing Documentation, Vital Signs Vital Signs: Last Vital Signs Temp 99.3 F 09/17/18 15:26 Pulse 85 09/17/18 15:26 Resp 16 09/17/18 15:26 BP 114/71 09/17/18 15:26 Pulse Ox 97 09/17/18 15:26 - Medical History PMH: Denies: Chronic Kidney Disease Other PMH: endometriosis - Surgical History Surgical History: Cholecystectomy Other surgeries: ovarian tumor removal 2011 and abdominoplasty 2012 - Family History Family History: States: Unknown Family Hx - Social History Current smoker - smoking cessation education provided: No Alcohol: Occasional - Immunization History Hx Tetanus Toxoid Vaccination: No Hx Influenza Vaccination: No - Home Medications Home Medications: Ambulatory Orders Medication Instructions Recorded Cyclobenzaprine [Cyclobenzaprine 10 mg PO BID #14 tab 07/03/17 HCl] Naproxen 500 mg PO TID #30 tab 07/03/17 Ibuprofen [Motrin Tab] 800 mg PO Q6H PRN #20 tab 12/06/17 Doxycycline Monohydrate 100 mg PO BID #28 tablet 09/17/18 Ibuprofen [Motrin Tab] 600 mg PO Q8 PRN #60 tab 09/17/18 traMADol [Ultram] 50 mg PO TID PRN #15 tab 09/17/18 - Allergies Allergies/Adverse Reactions: Allergies Allergy/AdvReac Type Severity Reaction Status Date / Time No Known Allergies Allergy Verified 09/17/18 22:34 Review of Systems ROS Statement: Except As Marked, All Systems Reviewed And Found Negative (As per HPI, otherwise negative) Constitutional: Negative for: Chills Genitourinary Female: Positive for: Dysuria, Pelvic Pain, Other (hesitancy). Negative for: Hematuria, Vaginal Discharge, Vaginal Bleeding Physical Exam - Reviewed Nursing Documentation Reviewed: Yes Vital Signs Reviewed: Yes - Physical Exam Appears: Positive for: In Acute Distress (painful ) Head Exam: Positive for: ATRAUMATIC, NORMOCEPHALIC Skin: Positive for: Warm, Dry Eye Exam: Positive for: EOMI, PERRL ENT: Negative for: Pharyngeal Erythema, Tonsillar Exudate Neck: Positive for: Painless ROM, Supple Cardiovascular/Chest: Positive for: Regular Rate, Rhythm. Negative for: Murmur Respiratory: Positive for: Normal Breath Sounds. Negative for: Respiratory Distress Gastrointestinal/Abdominal: Positive for: Soft, Tenderness (suprapubic upon palpation ). Negative for: Mass, Guarding, Rebound Back: Positive for: Normal Inspection. Negative for: Muscle Spasm Extremity: Positive for: Normal ROM. Negative for: Deformity Lymphatic: Negative for: Adenopathy Neurological/Psych: Positive for: Awake. Negative for: Motor/Sensory Deficits - Laboratory Results Result Diagrams: 09/17/18 18:02 09/17/18 16:50 - ECG O2 Sat by Pulse Oximetry: 97 (RA) Pulse Ox Interpretation: Normal Medical Decision Making Medical Decision Making: Time: 1554 Impression: pelvic pain and tubo ovarian abscess Plan: BBK Type and screen CMP Lactic acid, plasma ED urine dipstick ED urine CBC w/ differential PTT Prothrombin time Chlamydia/HC RNA, TMA Morphine 4mg Normal saline 1000 mls/hr Urine culture IV insertion UA Transvaginal US Reevaluation See attached scanned radiology results. Time: 170 FINDINGS: UTERUS: Measures 8.2 x 6.1 x 5.2 cm. Retroverted. Heterogeneous uterine echotexture. Probable fibroids including 2.3 x 2.1 x 1.5 cm posterior uterus, 1.5 x 1.5 x 1.1 cm fundus, and 1.6 x 2.2 x 1.5 cm right uterus. ENDOMETRIUM: Measures 2.0 cm in diameter. CERVIX: No cervical abnormality identified. RIGHT OVARY: Measures 4.3 x 3.8 x 2.5 cm. Blood flow is demonstrated. Follicles measuring up to 2.5 cm. LEFT OVARY: Measures 3.7 x 3.5 x 2.9 cm. Blood flow is demonstrated. Heterogeneous echotexture. Complex appearing cyst measuring 3.4 x 3.3 x 1.6 cm. FREE FLUID: Small pelvic free fluid. OTHER FINDINGS: Left adnexal tubular structure appears anechoic near the left ovary suspected to reflect hydrosalpinx. IMPRESSION: Anechoic tubular structure in the left adnexa possibly hydrosalpinx. Complex left ovarian cyst measures approximately 3.4 x 3.3 x 1.6 cm; recommend 6 week ultrasound follow-up. Small pelvic free fluid. Uterine fibroids. Time: 1914 Pelvic exam carried out with assistance from RN. Large amount of white, cheesy discharge. Positive CMT and adnexal tenderness. Findings demonstrate PID. Discussed all findings with NERY Blankenship digital content producer. patient to receive standard treatment for PID and discharge home. patient advised to followup with OBGYN on 09/26/2018. ----- Scribe Attestation: Documented by Diana Good, acting as a scribe Ese Liu MD Provider Scribe Attestation: All medical record entries made by the Scribe were at my direction and personall y dictated by me. I have reviewed the chart and agree that the record accurately reflects my personal performance of the history, physical exam, medical decision making, and the department course for this patient. I have also personally directed, reviewed, and agree with the discharge instructions and disposition. Disposition - Clinical Impression Clinical Impression: PID (pelvic inflammatory disease), Ovarian cyst, Hydrosalpinx Counseled Patient/Family Regarding: Studies Performed, Diagnosis, Need For Followup, Rx Given - Disposition Referrals: Matt Chawla MD [Staff Provider] - ([facility] DR CHAWLA POR SALGADO ALFONZO PROXIM[facility] SEMANA) Disposition: Routine/Home Disposition Time: 19:15 Condition: STABLE Additional Instructions: SAMANTHA MEDICAMENTOS A RECETO REGRESA SI [facility] VISITA SALGADO GYNECOLOGO POR SALGADO ALFONZO PROXIMA SEMANA Prescriptions: Doxycycline Monohydrate 100 mg PO BID #28 tablet Ibuprofen [Motrin Tab] 600 mg PO Q8 PRN #60 tab PRN Reason: Pain, Moderate (4-7) traMADol [Ultram] 50 mg PO TID PRN #15 tab PRN Reason: SEVERE PAIN ONLY Instructions: Pelvic Inflammatory Disease (DC), Vaginal Yeast Infection (DC), Ovarian Cyst (DC) Forms: [facility] ED School/Work Excuse Print Language: AFGHAN
[2018-09-17] MEDS ORDERED: Morphine 4 MG/ML VIAL ONE (17:10)
--- NOTE | 2018-09-17 17:12 | US ---
Date of service: 09/17/2018 HISTORY: pelvic pain TOA COMPARISON: None available. TECHNIQUE: Transvaginal pelvic ultrasound FINDINGS: UTERUS: Measures 8.2 x 6.1 x 5.2 cm. Retroverted. Heterogeneous uterine echotexture. Probable fibroids including 2.3 x 2.1 x 1.5 cm posterior uterus, 1.5 x 1.5 x 1.1 cm fundus, and 1.6 x 2.2 x 1.5 cm right uterus. ENDOMETRIUM: Measures 2.0 cm in diameter. CERVIX: No cervical abnormality identified. RIGHT OVARY: Measures 4.3 x 3.8 x 2.5 cm. Blood flow is demonstrated. Follicles measuring up to 2.5 cm. LEFT OVARY: Measures 3.7 x 3.5 x 2.9 cm. Blood flow is demonstrated. Heterogeneous echotexture. Complex appearing cyst measuring 3.4 x 3.3 x 1.6 cm. FREE FLUID: Small pelvic free fluid. OTHER FINDINGS: Left adnexal tubular structure appears anechoic near the left ovary suspected to reflect hydrosalpinx. IMPRESSION: Anechoic tubular structure in the left adnexa possibly hydrosalpinx. Complex left ovarian cyst measures approximately 3.4 x 3.3 x 1.6 cm; recommend 6 week ultrasound follow-up. Small pelvic free fluid. Uterine fibroids.
[2018-09-17 17:21] LABS: SQUAMOUS EPITHIAL 5 /hpf (0-5); URINE BACTERIA MOD (<OCC); URINE BILIRUBIN NEGATIVE (NEGATIVE); URINE BLOOD NEGATIVE (NEGATIVE); URINE CLARITY CLOUDY (Clear); URINE COLOR YELLOW (YELLOW); URINE GLUCOSE (UA) NEG (NEGATIVE); URINE LEUKOCYTE ESTERASE LARGE Leu/uL (Negative); URINE PROTEIN NEGATIVE (NEGATIVE); URINE UROBILINOGEN 0.2-1.0 mg/dL (0.2-1.0)
[2018-09-17 17:45] LABS: PROTHROMBIN TIME 11.6 Seconds (9.8-13.1)
[2018-09-17 17:48] LABS: PARTIAL THROMBOPLASTIN TIME 35.5 Seconds (25.6-37.1)
[2018-09-17 18:04] LABS: BASO % 0.4 % (0.0-2.0); EOS % 0.6 % (0.0-4.0); HEMOGLOBIN 12.3 g/dL (12.0-16.0); LYMPH # 1.7 K/uL (1.0-4.3); LYMPH % 30.2 % (20.0-40.0); MEAN CELL VOLUME 78.5 fl (81.0-99.0); MEAN CORPUSCULAR HEMOGLOBIN 25.2 pg (27.0-31.0); MEAN CORPUSCULAR HGB CONC 32.1 g/dL (33.0-37.0); MEAN PLATELET VOLUME 7.5 fl (7.2-11.7); MONO # 0.4 K/uL (0.0-0.8); MONO % 7.1 % (0.0-10.0); NEUT # 3.5 K/uL (1.8-7.0); NEUT % 61.7 % (50.0-75.0); RBC 4.87 Mil/uL (3.80-5.20); RED CELL DISTRIBUTION WIDTH 14.9 % (11.5-14.5); WHITE BLOOD COUNT 5.6 K/uL (4.8-10.8)
[2018-09-17 18:30] LABS: ALB/GLOB RATIO 1.2 (1.0-2.1); ALBUMIN 4.4 g/dL (3.5-5.0); ALT/SGPT 32 U/L (9-52); AST/SGOT 32 U/L (14-36); BLOOD UREA NITROGEN 11 mg/dl (7-17); CALCIUM 9.4 mg/dL (8.4-10.2); GFR NON-AFRICAN AMERICAN > 60
[2018-09-17] MEDS ORDERED: Fluconazole 150 MG TAB PO STA (18:59)
[2018-09-17] MEDS ORDERED: cefTRIAXone (Rocephin) 250 mg Inj IM STA (19:16)
[2018-09-17] MEDS ORDERED: cefTRIAXone (Rocephin) 250 mg Inj ONE (19:26)
[2018-09-17] MEDS ORDERED: Sterile Water 10 ML IV ONE (19:26)
== END 2018-09-17 20:20 | disposition home or self-care (01) ==
LOC: H.ER 15:03
DX: N73.9 Female pelvic inflammatory disease, unspecified (principal); D39.10 Neoplasm of uncertain behavior of unspecified ovary; N70.93 Salpingitis and oophoritis, unspecified; N70.11 Chronic salpingitis
CPT/HCPCS: 76830; 80053; 81003; 81025; 83605; 85025; 85610; 85730; 86850; 86900; 87070; 87086; 87491; 87591; 96372; 96374; 99284; J0696; J1885; J2270; J7030

== ENCOUNTER 2018-09-17 22:29 | Emergency (ER) | payer OTHER ==
[2018-09-17 22:29] VITALS: BMI 25.2
[2018-09-17 22:38] VITALS: RESP 16; O2SAT 95
[2018-09-17] MEDS ORDERED: Sodium Chloride 0.9% 1,000 ML IV STA (22:47)
--- NOTE | 2018-09-17 23:01 | ED PDOC ---
Syncope/Near Syncope/Dizziness Time Seen by Provider: 09/17/18 22:38 Chief Complaint (Nursing): Abdominal Pain Chief Complaint (Provider): abdominal pain History Per: Patient (sudden onset pelvic pain, lightheadedness and feeling faint associated with pallor while at supermarket. Pain ongoing for 1 month and recently seen in this ER and diagnosed with PID. Lee better when she was initially discharged from ER, ate food, and felt otherwise well enought to go grocery shopping. She had not filled rx's yet due to pharmacy being closed.) Onset/Duration Of Symptoms: Sudden Onset (just prior to arrival) Activity At Onset Of Symptoms: Walking Associated Symptoms Preceding Syncopal Episode: Other (severe lower abdominal pain) Possible Causative Factor(s): Decreased PO Intake, Other (pain) Past Medical History Reviewed: Historical Data, Nursing Documentation, Vital Signs Vital Signs: Last Vital Signs Temp 98.2 F 09/17/18 22:34 Pulse 87 09/17/18 22:34 Resp 16 09/17/18 22:34 BP 110/62 09/17/18 22:34 Pulse Ox 95 09/17/18 22:34 - Medical History PMH: Denies: Chronic Kidney Disease Other PMH: Endometriosis - Surgical History Other surgeries: Ovarian cyst resection 2011, abdominoplasty 2013 - Family History Family History: States: No Known Family Hx - Social History Current smoker - smoking cessation education provided: No - Immunization History Hx Tetanus Toxoid Vaccination: No Hx Influenza Vaccination: No - Home Medications Home Medications: Ambulatory Orders Medication Instructions Recorded Cyclobenzaprine [Cyclobenzaprine 10 mg PO BID #14 tab 07/03/17 HCl] Naproxen 500 mg PO TID #30 tab 07/03/17 Ibuprofen [Motrin Tab] 800 mg PO Q6H PRN #20 tab 12/06/17 Doxycycline Monohydrate 100 mg PO BID #28 tablet 09/17/18 Ibuprofen [Motrin Tab] 600 mg PO Q8 PRN #60 tab 09/17/18 traMADol [Ultram] 50 mg PO TID PRN #15 tab 09/17/18 - Allergies Allergies/Adverse Reactions: Allergies Allergy/AdvReac Type Severity Reaction Status Date / Time No Known Allergies Allergy Verified 09/17/18 22:34 Review of Systems ROS Statement: Except As Marked, All Systems Reviewed And Found Negative (and as per HPI) Constitutional: Negative for: Fever, Chills Gastrointestinal: Positive for: Abdominal Pain Genitourinary Female: Positive for: Pelvic Pain. Negative for: Dysuria, Freq uency, Vaginal Discharge, Vaginal Bleeding Physical Exam - Reviewed Nursing Documentation Reviewed: Yes Vital Signs Reviewed: Yes - Physical Exam Appears: Positive for: In Acute Distress (and tired appearing) Head Exam: Positive for: ATRAUMATIC, NORMOCEPHALIC Skin: Positive for: Warm, Dry Eye Exam: Positive for: EOMI, PERRL ENT: Negative for: Pharyngeal Erythema, Tonsillar Exudate Neck: Positive for: Painless ROM, Supple Cardiovascular/Chest: Positive for: Regular Rate, Rhythm. Negative for: Murmur Respiratory: Positive for: Normal Breath Sounds. Negative for: Respiratory Distress Gastrointestinal/Abdominal: Positive for: Soft, Tenderness (suprapubic ttp). Ne gative for: Mass, Distended, Guarding, Rebound Back: Positive for: Normal Inspection. Negative for: Muscle Spasm Extremity: Positive for: Normal ROM. Negative for: Deformity Lymphatic: Negative for: Adenopathy Neurological/Psych: Positive for: Awake. Negative for: Motor/Sensory Deficits - Laboratory Results Result Diagrams: 09/17/18 23:09 09/17/18 23:09 - ECG O2 Sat by Pulse Oximetry: 95 Pulse Ox Interpretation: Normal - Physician Consult Information Physician Contacted: Ryan York Outcome Of Conversation: To evaluate pt in ER. Disposition - Clinical Impression Clinical Impression: PID (pelvic inflammatory disease), Near syncope - Disposition Referrals: Alexander Christensen MD [Primary Care Provider] - Disposition: Transfer of Care Disposition Time: 23:00 Condition: STABLE Instructions: Pelvic Inflammatory Disease Forms: [employer] (Yoruba) Print Language: CYMRAES Patient Signed Over To: Miguel A Ruiz Handoff Comments: Pending Director Customer consult, ER workup, reassessement and final ER disposition.
[2018-09-17 23:13] LABS: BASO % 0.7 % (0.0-2.0); EOS # 0.1 K/uL (0.0-0.7); EOS % 1.2 % (0.0-4.0); HEMOGLOBIN 11.6 g/dL (12.0-16.0); LYMPH % 34.1 % (20.0-40.0); MEAN CELL VOLUME 78.2 fl (81.0-99.0); MEAN CORPUSCULAR HEMOGLOBIN 25.5 pg (27.0-31.0); MEAN CORPUSCULAR HGB CONC 32.5 g/dL (33.0-37.0); MEAN PLATELET VOLUME 7.3 fl (7.2-11.7); MONO # 0.5 K/uL (0.0-0.8); MONO % 8.7 % (0.0-10.0); NEUT # 3.3 K/uL (1.8-7.0); NEUT % 55.3 % (50.0-75.0); RBC 4.56 Mil/uL (3.80-5.20); RED CELL DISTRIBUTION WIDTH 14.6 % (11.5-14.5)
[2018-09-17 23:27] LABS: ALB/GLOB RATIO 1.2 (1.0-2.1); ALT/SGPT 27 U/L (9-52); AST/SGOT 27 U/L (14-36); BLOOD UREA NITROGEN 9 mg/dl (7-17); CALCIUM 9.1 mg/dL (8.4-10.2); GFR NON-AFRICAN AMERICAN > 60
--- NOTE | 2018-09-18 00:04 | ED PDOC ---
- Laboratory Results Result Diagrams: 09/17/18 23:09 09/17/18 23:09 Lab Results: Total Bilirubin 0.2 mg/dl (0.2-1.3) 09/17/18 23:09 AST 27 U/L (14-36) 09/17/18 23:09 ALT 27 U/L (9-52) 09/17/18 23:09 Alkaline Phosphatase 85 U/L (38-126) 09/17/18 23:09 Total Protein 7.4 G/DL (6.3-8.2) 09/17/18 23:09 Albumin 4.0 g/dL (3.5-5.0) 09/17/18 23:09 Globulin 3.4 gm/dL (2.2-3.9) 09/17/18 23:09 Albumin/Globulin Ratio 1.2 (1.0-2.1) 09/17/18 23:09 - ECG O2 Sat by Pulse Oximetry: 95 (RA) Pulse Ox Interpretation: Normal Medical Decision Making Medical Decision Making: Time: 2329 -- Patient endorsed to me by Dr. Liu, pending USER SUPPORT ANALYST SUPERVISOR consult in the ED. Time: 239 -- Patient seen by MARKETING SERVICES SPECIALIST communications equipment operator, Dr. York, and states that patient is stable for discharge with instructions to follow up as an outpatient. MARKETING SERVICES SPECIALIST resident will try to get an expedited follow up appointment with Dr. Cunningham for further management. Patient is well appearing upon discharge, asking for dose of pain medication so she can sleep more comfortably tonight. Scribe Attestation: Documented by Kathie Martinez, acting as a scribe for Miguel A Ruiz MD. Provider Scribe Attestation: All medical record entries made by the Scribe were at my direction and personally dictated by me. I have reviewed the chart and agree that the record accurately reflects my personal performance of the history, physical exam, medical decision making, and the department course for this patient. I have also personally directed, reviewed, and agree with the discharge instructions and disposition. Disposition Counseled Patient/Family Regarding: Studies Performed, Diagnosis, Need For Followup, Rx Given - Clinical Impression Clinical Impression: PID (pelvic inflammatory disease), Near syncope - POA Present On Arrival: None - Disposition Referrals: Alexander Christensen MD [Primary Care Provider] - Disposition: Routine/Home Disposition Time: 02:40 Condition: STABLE Instructions: Pelvic Inflammatory Disease Forms: [facility] (Lithuanian) Print Language: MALAY
--- NOTE | 2018-09-18 00:34 | CP.PCM.HP ---
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 Reports long hx of pain, progressively worsening. Heating pads and lying in position on L side help. Reports she has extensive gynecologic hx of endometriosis, fibroids, and ovarian cyst, CT abdomen pelvis 08/21/48 PID with possible R TOA. Pt was seen in ED today for same symptoms and sent home with prescriptions for Doxycycline 100mg BID, Ibuprofen 600mg Q8, and Tramadol 50mg TID with considered Dx PID, ovarian cyst, and hydosalpinx, pt failed to fill medications due to pharmacy being closed. Admits to vaginal discharge clear pasty and white, denies pruritis or foul smell. Reports constipation. Denied fevers, nausea, vomiting, hematuria, dysuria, diarrhea. Physician Office Assistant: Dr. Cunningham-appt 09/26/18, previous nub card tender Som [facility] OBGYN: LMP08/26/18 periods last 4-5 days heavy flow 5-6 PPDs, clots. dysmenorrhea. Denies hx of STD's, not currently sexually active, last partner 2 years ago denies condom use, 2 total lifetime partners. Last pap smear 08/06/18 reports normal PMHx: uterine fibroids, complex ovarian cyst, PID with TOA , Endometriosis. 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 Meds: Vitamins, Melatonin, Tylenol Allergies:NKDA Surg: Cholecystectomy 2012, Uterine myoma removed, Breast cyst 2005, Abdominoplasty 2012, pelvic ovarian tumor 2012, Neck cyst 2018 Present on Admission - Present on Admission Any Indicators Present on Admission: No History of DVT/PE: No History of Uncontrolled Diabetes: No Urinary Catheter: No Decubitus Ulcer Present: No Review of Systems - Gastrointestinal Gastrointestinal: Abdominal Pain, Constipation. absent: Diarrhea, Nausea, Vomiting - Reproductive: Female Reproductive:Female: Dysmenorrhea, Pelvic Pain, Vaginal Discharge. absent: Vaginal Odor, Vaginal Pruritis Past Patient History - Infectious Disease Hx of Infectious Diseases: None - Past Medical History & Family History Past Medical History?: Yes - Past Social History Smoking Status: Never Smoked - CARDIAC Hx Cardiac Disorders: No - PULMONARY Hx Respiratory Disorders: No Hx Tuberculosis: Yes - NEUROLOGICAL Hx Neurological Disorder: No - HEENT Hx HEENT Problems: No - RENAL Hx Chronic Kidney Disease: No - HEMATOLOGICAL/ONCOLOGICAL Hx Blood Disorders: No - INTEGUMENTARY Hx Dermatological Problems: No - MUSCULOSKELETAL/RHEUMATOLOGICAL Hx Musculoskeletal Disorders: No Hx Falls: No - GASTROINTESTINAL Hx Gastrointestinal Disorders: No - GENITOURINARY/GYNECOLOGICAL Hx Genitourinary Disorders: Yes Other/Comment: ovarian cyst, pid - PSYCHIATRIC Hx Substance Use: No - SURGICAL HISTORY Hx Cholecystectomy: Yes - ANESTHESIA Hx Anesthesia: Yes Hx Anesthesia Reactions: No Hx Malignant Hyperthermia: No Meds Allergies/Adverse Reactions: Allergies Allergy/AdvReac Type Severity Reaction Status Date / Time No Known Allergies Allergy Verified 09/17/18 22:34 Physical Exam - Constitutional Appears: Non-toxic, No Acute Distress - Head Exam Head Exam: ATRAUMATIC, NORMAL INSPECTION, NORMOCEPHALIC - Eye Exam Eye Exam: EOMI, Normal appearance - ENT Exam ENT Exam: Mucous Membranes Moist - Respiratory Exam Respiratory Exam: Clear to Auscultation Bilateral, NORMAL BREATHING PATTERN. absent: Rales, Rhonchi, Wheezes - Cardiovascular Exam Cardiovascular Exam: RRR, +S1 - GI/Abdominal Exam GI & Abdominal Exam: Normal Bowel Sounds, Soft, Tenderness (Suprpubic, LLQ region ). absent: Distended, Rebound - Extremities Exam Extremities exam: Positive for: normal inspection Results - Vital Signs Recent Vital Signs: Last Vital Signs Temp 98.2 F 09/17/18 22:34 Pulse 87 09/17/18 22:34 Resp 16 09/17/18 22:34 BP 110/62 09/17/18 22:34 Pulse Ox 95 09/18/18 00:04 - Labs Result Diagrams: 09/17/18 23:09 09/17/18 23:09 Labs: Laboratory Results - last 24 hr 09/17/18 09/17/18 09/17/18 23:09 23:09 23:13 WBC 6.0 RBC 4.56 Hgb 11.6 L Hct 35.7 MCV 78.2 L MCH 25.5 L MCHC 32.5 L RDW 14.6 H Plt Count 304 MPV 7.3 Neut % (Auto) 55.3 Lymph % (Auto) 34.1 Simpson % (Auto) 8.7 Eos % (Auto) 1.2 Baso % (Auto) 0.7 Neut # (Auto) 3.3 Lymph # (Auto) 2.0 Simpson # (Auto) 0.5 Eos # (Auto) 0.1 Baso # (Auto) 0.0 Sodium 143 Potassium 4.4 Chloride 105 Carbon Dioxide 24 Anion Gap 18 BUN 9 Creatinine 0.6 L Est GFR ( Amer) > 60 Est GFR (Non-Af Amer) > 60 POC Glucose (mg/dL) 103 Random Glucose 83 Calcium 9.1 Total Bilirubin 0.2 AST 27 ALT 27 Alkaline Phosphatase 85 Total Protein 7.4 Albumin 4.0 Globulin 3.4 Albumin/Globulin Ratio 1.2 Assessment & Plan - Assessment and Plan (Free Text) Assessment: Pt is a 38 yo presented to ED with LLQ constant stabbing abdominal pain seen in ED due to pelvic pain Likely 2/2 to Pelvic Inflammatory Disease - Advised patient to fill her prescriptions tomorrow in the morning - Will call [facility] office to try and get the patient an appt sooner than September [address] Cunningham -Continue pain management Reviewed case and discussed with Attending Christina Akins PGY 1
[2018-09-18 03:08] VITALS: BP 107/69; PULSE 82; TEMP 98
--- NOTE | 2018-09-18 08:59 | CARD ---
APPROVED REPORT Date of service: 09/17/2018 EKG Measurement Heart [id number] <Conclusion> Normal sinus rhythm Normal ECG
== END 2018-09-18 03:00 | disposition home or self-care (01) ==
LOC: H.ER 22:29
DX: N73.9 Female pelvic inflammatory disease, unspecified (principal); R55 Syncope and collapse
CPT/HCPCS: 80053; 81025; 82948; 85025; 93005; 96360; 99285; J7030

== ENCOUNTER 2018-10-13 19:00 | Emergency (ER) | payer OTHER ==
[2018-10-13 19:00] VITALS: BMI 25.2
[2018-10-13 19:29] VITALS: RESP 18
[2018-10-13] MEDS ORDERED: Iohexol 240 (50 ml) PO ONE (20:34)
--- NOTE | 2018-10-13 20:35 | ED PDOC ---
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 Patient states she does have some nausea but no vomiting, fever or constipation. PMD: Dr. Cunningham Past Medical History Reviewed: Historical Data, Nursing Documentation, Vital Signs Vital Signs: Last Vital Signs Temp 99.1 F 10/13/18 19:23 Pulse 94 H 10/13/18 19:23 Resp 18 10/13/18 19:23 BP 121/79 10/13/18 19:23 Pulse Ox 99 10/13/18 19:23 - Medical History PMH: Anemia, Malignancy Denies: Chronic Kidney Disease - Surgical History Surgical History: Cholecystectomy - Family History Family History: States: Unknown Family Hx - Social History Current smoker - smoking cessation education provided: No Alcohol: None Drugs: Denies - Immunization History Hx Tetanus Toxoid Vaccination: No Hx Influenza Vaccination: No - Home Medications Home Medications: Ambulatory Orders Medication Instructions Recorded Cyclobenzaprine [Cyclobenzaprine 10 mg PO BID #14 tab 07/03/17 HCl] Naproxen 500 mg PO TID #30 tab 07/03/17 Ibuprofen [Motrin Tab] 800 mg PO Q6H PRN #20 tab 12/06/17 Doxycycline Monohydrate 100 mg PO BID #28 tablet 09/17/18 Ibuprofen [Motrin Tab] 600 mg PO Q8 PRN #60 tab 09/17/18 traMADol [Ultram] 50 mg PO TID PRN #15 tab 09/17/18 - Allergies Allergies/Adverse Reactions: Allergies Allergy/AdvReac Type Severity Reaction Status Date / Time No Known Allergies Allergy Verified 09/17/18 22:34 Review of Systems ROS Statement: Except As Marked, All Systems Reviewed And Found Negative Constitutional: Negative for: Fever Gastrointestinal: Positive for: Nausea, Abdominal Pain, Diarrhea. Negative for: Vomiting Physical Exam - Reviewed Nursing Documentation Reviewed: Yes Vital Signs Reviewed: Yes - Physical Exam Appears: Positive for: Non-toxic, Uncomfortable Head Exam: Positive for: ATRAUMATIC, NORMOCEPHALIC Skin: Positive for: Normal Color, Warm, Dry Eye Exam: Positive for: Normal appearance, EOMI, PERRL Neck: Positive for: Normal Cardiovascular/Chest: Positive for: Regular Rate, Rhythm. Negative for: Murmur Respiratory: Positive for: Normal Breath Sounds. Negative for: Respiratory Distress Gastrointestinal/Abdominal: Positive for: Soft, Tenderness (diffuse) Back: Positive for: Normal Inspection. Negative for: L CVA Tenderness, R CVA Tenderness, Vertebral Tenderness Extremity: Positive for: Normal ROM. Negative for: Pedal Edema, Deformity Neurological/Psych: Positive for: Alert, Oriented - Laboratory Results Result Diagrams: 10/13/18 21:15 10/13/18 21:15 - ECG O2 Sat by Pulse Oximetry: 99 (RA) Pulse Ox Interpretation: Normal Medical Decision Making Medical Decision Making: Time: 2033 Plan: rectal bleeding, abdominal pain, history of chronic pelvic pain/pelvic mass CT abd pelvis PO and IV contrast CMP CBC with differential Omnipaque 240 50 ml PO Guiac Stool 00:23 CT FINDINGS: LUNG BASES: Right pleural-based thickening is noted. LIVER: Unremarkable. GALLBLADDER AND BILE DUCTS: S/p cholecystectomy. Surgical clips are noted in the gallbladder fossa. PANCREAS: Unremarkable. SPLEEN: Unremarkable. ADRENAL GLANDS: Unremarkable. KIDNEYS, URETERS, AND BLADDER: The kidneys appear within normal limits. There is no hydronephrosis or hydroureter. No urinary calculi are seen. STOMACH AND BOWEL: Thick walled fluid filled duodenum and loops of jejunum as well as ileum compatible with enteritis. Infectious and inflammatory etiologies are considered. Consider consultation with GI service and follow up with upper endoscopy and colonoscopy. APPENDIX: No evidence of acute appendicitis on CT examination. PERITONEUM: No free fluid. No free air. LYMPH NODES: No lymphadenopathy is evident. REPRODUCTIVE: The right ovary appears enlarged. Complex right ovarian cystic lesion is seen measuring 3 x 2 cm. The uterus appears bulky with fluid distended endometrial canal. Correlation with pelvic US is recommended. VASCULATURE: No evidence of abdominal aortic aneurysm. BONES: No aggressive appearing osseous lesion. No acute osseous pathology evident. IMPRESSION: 1. S/p cholecystectomy. 2. Enteritis. Infectious and inflammatory etiologies are considered. Consider consultation with GI service and follow up with upper endoscopy and colonoscopy. 3. The right ovary appears enlarged. Complex right ovarian cystic lesion is seen measuring 3 x 2 cm. The uterus appears bulky with fluid distended endometrial canal. Correlation with pelvic US is recommended. 00:36 Patient is aware of the findings of the US and has already followed up with Dr. Cunningham who will be operating on the patient. Hemoglobin levels are stable. Will obtain pelvic US to further elucidate results of CT. 03:00 Transvaginal US Findings: Uterus is normal in size measuring 7.6x4x6.2 cm. Diffuse thickening of the endometrium measuring 16 mm in length and mild amount of free fluid in endometrial cavity. Multiple fibroids are noted the largest measuring 2.5 cm. Normal cervix measuring 4.1 cm. No free fluid in the pelvic cul-de-sac. The left ovary. Right ovarian simple cyst measuring 1.9 cm. Hypoechoic complex lesion of the right ovary measuring 2.3 centimeters. Impression: Diffuse thickening of the endometrium. Right ovarian hypoechoic complex lesion. This may represent an endometrioma or a hemorrhagic cyst. Right ovarian simple cyst. No evidence of ovarian torsion. 315 am pt aware of pelvic findings, will follow up with Dr Cunningham for that pt also aware of enteritis, and need to follow up with primary doctor or in the clinic (info provided) as she has rectal bleeding and will need outpatient GI workup. no bleeding while in the ER, hgb is stable. pt w stable vitals, alert and awake. (guiac positive). she is aware of the pelvic findings and already has follow up with Dr Cunningham. Scribe Attestation: Documented by Gulshan Leroy, acting as a scribe forTennille Mar MD. Provider Scribe Attestation: All medical record entries made by the Scribe were at my direction and personally dictated by me. I have reviewed the chart and agree that the record accurately reflects my personal performance of the history, physical exam, medical decision making, and the department course for this patient. I have also personally directed, reviewed, and agree with the discharge instructions and disposition Disposition - Clinical Impression Clinical Impression: Enteritis, Pelvic pain, Ovarian cyst, Rectal bleed - Patient ED Disposition Is Patient to be Admitted: No Counseled Patient/Family Regarding: Studies Performed, Diagnosis, Need For Followup - Disposition Referrals: [facility] [Outside] [facility] [Outside] Matt Cunningham MD [Family Provider] - Disposition: Routine/Home Disposition Time: 03:15 Condition: IMPROVED Additional Instructions: stay hydrated follow up with Dr Cunningham for further evaluation and management of your pelvic issues within one week follow up with your primary doctor in 2 days for evaluation of the enteritis return to the ED with any worsening or concerning symptoms Instructions: Bloody Stools, Adult (DC), Stomach Ache and Stomach Upset, Ovarian Cyst Removal (DC) Forms: [employer] Connect (Nigerian), [employer] (Upper Sorbian) Print Language: SCOTTISH
[2018-10-13] MEDS ORDERED: Iohexol 240 (50 ml) ONE (21:19)
[2018-10-13 21:34] LABS: BASO % 0.5 % (0.0-2.0); EOS # 0.1 K/uL (0.0-0.7); EOS % 0.8 % (0.0-4.0); HEMOGLOBIN 11.6 g/dL (12.0-16.0); LYMPH % 30.4 % (20.0-40.0); MEAN CELL VOLUME 77.9 fl (81.0-99.0); MEAN CORPUSCULAR HEMOGLOBIN 25.4 pg (27.0-31.0); MEAN CORPUSCULAR HGB CONC 32.6 g/dL (33.0-37.0); MEAN PLATELET VOLUME 7.8 fl (7.2-11.7); MONO # 0.5 K/uL (0.0-0.8); MONO % 8.3 % (0.0-10.0); NEUT # 3.9 K/uL (1.8-7.0); RBC 4.58 Mil/uL (3.80-5.20); RED CELL DISTRIBUTION WIDTH 15.5 % (11.5-14.5); WHITE BLOOD COUNT 6.4 K/uL (4.8-10.8)
[2018-10-13 21:46] LABS: ALB/GLOB RATIO 1.3 (1.0-2.1); ALBUMIN 4.3 g/dL (3.5-5.0); ALT/SGPT 28 U/L (9-52); AST/SGOT 29 U/L (14-36); BLOOD UREA NITROGEN 8 mg/dl (7-17); CALCIUM 9.2 mg/dL (8.4-10.2); GFR NON-AFRICAN AMERICAN > 60
[2018-10-13] MEDS ORDERED: Sodium Chloride 0.9% 50 ML IV ONE (22:32)
[2018-10-13] MEDS ORDERED: Iohexol 300 100 ML IJ ONE (22:32)
[2018-10-14 00:29] VITALS: O2SAT 99
[2018-10-14 03:10] VITALS: BP 112/67; PULSE 86; TEMP 99.6
--- NOTE | 2018-10-14 12:13 | CT ---
Date of service: 10/13/2018 PROCEDURE: CT scan abdomen and pelvis HISTORY: Abdominal pain rectal bleeding COMPARISON: None. TECHNIQUE: Contiguous axial images of the abdomen and pelvis performed following oral and intravenous injection of approximately 90 cc Omnipaque 300 contrast material. Additional 2D sagittal and coronal reformats generated. Radiation dose: Total exam DLP = 737.36 mGy-cm. This CT exam was performed using one or more of the following dose reduction techniques: Automated exposure control, adjustment of the mA and/or kV according to patient size, and/or use of iterative reconstruction technique. FINDINGS: LOWER THORAX: Heart size within range of normal. No significant pericardial effusion. There is a small hiatal hernia. No acute consolidation however note is made of a small elliptical shaped pleural-based density associate with a tiny calcification along its anterior border. Findings suggest prior residual post inflammatory granulation tissue scarring however the possibility of prior exposure to a granulomatous disease process to be excluded. No evidence of effusion or basilar pneumothorax. LIVER: Liver exhibits relatively normal size measuring approximately 17.5 cm in CC dimension. Minor fatty hepatic infiltration. No obvious hepatic mass collection or calcification. Portal and splenic veins are opacified.. Minimal central intrahepatic biliary ductal dilatation. GALLBLADDER AND BILE DUCTS: Cholecystectomy. PANCREAS: Pancreas grossly unremarkable. SPLEEN: Spleen exhibits normal size and attenuation pattern without mass collection or calcification ADRENALS: There are no adrenal lesions.. KIDNEYS AND URETERS: Kidneys demonstrate symmetric nephrograms. No evidence of nephrolithiasis or hydronephrosis. BLADDER: Urinary bladder is incompletely distended which in part accounts for slight thick-walled appearance however correlation with urinalysis recommended to exclude cystitis.. REPRODUCTIVE: Uterus is unremarkable. Right ovary appears enlarged measuring approximately 3.5 x 2.8 cm with a more discrete elliptical shaped component along its right anterolateral border which measures approximately 2.2 x 1.1 cm. Findings may represent a large complex ovarian cyst with more discrete low-attenuation component or complex cystic mass.. In addition, there also appears to be what may represent a collapsing or hemorrhagic left ovarian cyst. Additionally, there also appears to be free fluid in the cul de sac. Note that a cyst hydrosalpinx cannot be excluded on the left side. APPENDIX: Unremarkable. BOWEL: Evaluation of the bowel is slightly limited due to incomplete opacification. The stomach is partially distended with air contrast material the latter of which is also admixed with some liquid food debris. Visualized loops of small bowel exhibit normal contour and caliber. No evidence of acute mechanical small bowel obstruction. Seen throughout the right colon. Most of the transverse colon descending and sigmoid colon are collapsed which probably in part accounts for slight thick-walled appearance however underlying mild colitis suspected. Recommend follow-up colonoscopy. PERITONEUM: Unremarkable. No fluid collection. No free air. There is free fluid seen within the cul de sac which appears to extend anteriorly adjacent to the left lower uterine body and adnexal region. LYMPH NODES: Unremarkable. No enlarged lymph nodes. VASCULATURE: Unremarkable. No aortic aneurysm. No aortic atherosclerotic calcification or mural plaque present. BONES: Minor multilevel degenerative spondylosis of the lumbar and to a lesser degree lower thoracic spine. OTHER FINDINGS: Made of elliptical shaped soft tissue density within the subcutaneous tissues anterior abdominal wall at the level of the pelvis that are nonspecific and may represent some post inflammatory changes. Clinical correlation with history recommended. IMPRESSION: Most of the transverse descending and sigmoid colon are collapsed with slight thick-walled appearance however concomitant mild colitis suspected as well. Follow-up colonoscopy suggested. There is a complex appearing right ovarian cyst or complex cystic and solid mass right ovary. Questionable collapsing left adnexal cyst. Note also that the left adnexae exhibits a elongated configuration which could represent some volume averaging of free fluid though hydrosalpinx not excluded. Follow-up pelvic ultrasound and/or MRI of the female pelvis may be of some benefit. Small amount of free fluid felt be present within the cul de sac.. Cholecystectomy with minimal central intrahepatic biliary ductal dilatation. Mild fatty hepatic infiltration. Note that the report was placed in [place] review folder for follow up
--- NOTE | 2018-10-14 14:58 | US ---
Date of service: 10/14/2018 HISTORY: rule out torsion COMPARISON: None available. TECHNIQUE: Transabdominal pelvic ultrasound 09/17/[address] 10/13/2018. FINDINGS: UTERUS: Measures 7.6 x 4.0 x 6.2 cm. Uterus remains mildly enlarged with a 2.4 x 1.5 x 1.9 cm posterior mid fundal subserosal fibroid reiterated not significantly changed in size. ENDOMETRIUM: Measures 16.0 mm in diameter. Trace fluid seen in the lower uterine segment component of the endometrial cavity. CERVIX: No cervical abnormality identified. RIGHT OVARY: Measures 4.7 x 2.8 x 2.7 cm. A complex cystic or solid lesion is seen related to the right ovary measuring 2.3 x 2.1 x 2.1 cm with a simple cyst measuring 1.9 x 1.5 x 1.5 cm also present. Normal flow. LEFT OVARY: Measures 2.6 x 1.3 x 1.4 cm. No solid mass. Normal flow. FREE FLUID: No significant free fluid noted. OTHER FINDINGS: None. IMPRESSION: 1. No sonographic evidence of ovarian torsion bilaterally. 2. Complex cyst versus solid lesion right ovary 2.3 cm for which follow-up MRI should be considered with without contrast on elective basis. Consider potential endometrium or hemorrhagic cyst though other etiologies are possible. 3. Prominent endometrium at 16.0 mm without focal mass appreciable. Trace fluid is seen the inferior endometrial cavity. Clinical follow-up recommended. 4. Mild uterine enlargement with dominant uterine fibroid reiterated at the mid posterior fundus once again. Preliminary report provided by Roland, 10/14/2018, 2:59 a.m..
== END 2018-10-14 03:25 | disposition home or self-care (01) ==
LOC: H.ER 19:00
DX: R10.2 Pelvic and perineal pain (principal); K52.9 Noninfective gastroenteritis and colitis, unspecified; K62.5 Hemorrhage of anus and rectum; D25.9 Leiomyoma of uterus, unspecified; R93.89 Abnormal findings on diagnostic imaging of other specified body structures
CPT/HCPCS: 74177; 76830; 80053; 81025; 85025; 96374; 99285; G0328; J1885; Q9966; Q9967

== ENCOUNTER 2018-10-24 10:28 | Emergency (ER) | payer OTHER ==
[2018-10-24 10:29] VITALS: BMI 29.1
[2018-10-24 10:38] VITALS: RESP 18; TEMP 98.4; O2SAT 99
--- NOTE | 2018-10-24 11:03 | ED PDOC ---
HPI: Abdomen Time Seen by Provider: 10/24/18 10:49 Chief Complaint (Provider): abdominal pain History Per: Patient History/Exam Limitations: no limitations Location Of Pain/Discomfort: RLQ, LLQ Additional Complaint(s): Patient is a 38 year old female with a past medical history of anemia, who presents to the emergency department complaining of lower abdominal and vaginal pain, associated with pain on urination. According to patient's family member at bedside, patient has been unable to sleep due to her pain and has taken x5 pills of ibuprofen. She further states that she is scheduled to have surgery to remove a 5 cm fibroid from her uterus and maybe part of her Fallopian tubes on November 01. Patient reports that she is more comfortable on her side. She also states that she is on the 2nd day of her period. Patient further denies any vomiting or diarrhea. PMD: Dr. Cunningham Past Medical History Reviewed: Historical Data, Nursing Documentation, Vital Signs Vital Signs: Last Vital Signs Temp 98.4 F 10/24/18 10:37 Pulse 87 10/24/18 10:37 Resp 18 10/24/18 10:37 BP 125/76 10/24/18 10:37 Pulse Ox 99 10/24/18 10:37 - Medical History PMH: Anemia, Malignancy Denies: Chronic Kidney Disease - Surgical History Surgical History: Cholecystectomy - Family History Family History: States: Unknown Family Hx - Immunization History Hx Tetanus Toxoid Vaccination: No Hx Influenza Vaccination: No - Home Medications Home Medications: Ambulatory Orders Medication Instructions Recorded Cyclobenzaprine [Cyclobenzaprine 10 mg PO BID #14 tab 07/03/17 HCl] Naproxen 500 mg PO TID #30 tab 07/03/17 Ibuprofen [Motrin Tab] 800 mg PO Q6H PRN #20 tab 12/06/17 Doxycycline Monohydrate 100 mg PO BID #28 tablet 09/17/18 Ibuprofen [Motrin Tab] 600 mg PO Q8 PRN #60 tab 09/17/18 traMADol [Ultram] 50 mg PO TID PRN #15 tab 09/17/18 Oxycodone HCl/Acetaminophen 1 each PO Q6 #30 tablet 10/24/18 [Percocet 10-325 mg Tablet] - Allergies Allergies/Adverse Reactions: Allergies Allergy/AdvReac Type Severity Reaction Status Date / Time No Known Allergies Allergy Verified 09/17/18 22:34 Review of Systems ROS Statement: Except As Marked, All Systems Reviewed And Found Negative Gastrointestinal: Positive for: Abdominal Pain. Negative for: Vomiting, D iarrhea Genitourinary Female: Positive for: Dysuria, Other (vaginal pain) Physical Exam - Reviewed Nursing Documentation Reviewed: Yes Vital Signs Reviewed: Yes - Physical Exam Appears: Positive for: Non-toxic, Uncomfortable Head Exam: Positive for: ATRAUMATIC, NORMOCEPHALIC Skin: Positive for: Normal Color, Warm, Dry Cardiovascular/Chest: Positive for: Regular Rate, Rhythm. Negative for: Murmur Respiratory: Positive for: Normal Breath Sounds. Negative for: Respiratory Distress Gastrointestinal/Abdominal: Positive for: Soft, Tenderness (diffuse tenderness that is worse on RLQ), Guarding (on RLQ palpation) Neurological/Psych: Positive for: Alert, Oriented - Laboratory Results Result Diagrams: 10/24/18 11:30 10/24/18 11:30 - ECG O2 Sat by Pulse Oximetry: 99 (RA) Pulse Ox Interpretation: Normal Medical Decision Making Medical Decision Making: Time: 1101 A/P: Work up for abdominal pain. Will order labs and give Morphine for pain. --CMP --CBC with differential --Morphine 2 mg IVP Time: 1226 --Patient continues to have right sided tenderness and will get pelvic US to rule out ovarian torsion. --Will contact Dr. Cunningham Plan: --Pelvic/transvaginal US Time: 1448 Transvaginal US FINDINGS: UTERUS: Measures 8.7 x 5.5 x 5.8 cm. Homogeneous echotexture. Mildly retroverted. There is and anterior sub serosal uterine fibroid, 1.6 x 2.0 x 2.0 cm. There is no other mass identified. ENDOMETRIUM: Measures 9 mm in diameter. Unremarkable. CERVIX: No cervical abnormality identified. RIGHT OVARY: Measures 3.6 x 4.4 x 3.0 cm. No solid mass. Normal flow. Simple cyst, 2.3 x 2.7 x 3.0 cm. Low-level echoes seen throughout this cystic structure on prior ultrasound examination are no longer evident, consistent with resolving hemorrhagic cyst. LEFT OVARY: Measures 3.6 x 2.0 x 1.8 cm. No solid mass. Normal flow. FREE FLUID: No significant free fluid noted. OTHER FINDINGS: None. IMPRESSION: 2.7 cm right ovarian simple cyst, previously demonstrating low-level internal echoes on 10/14/2018. Consistent with resolving hemorrhagic cyst. Incidental small anterior subserosal uterine fibroid. Time: 1533 --Labs and US without change from previous time. --Spoke with Dr. Cunningham, who is unable to come. Will consult with Dr. Bernard. Time: 1633 --Patient was seen by gynecology and given a Rx for Provera. --Patient will also be given Rx for Percocet. --Discussed with patient that they should not take more than recommended dose of ibuprofen and patient should follow up with Gynecology/PMD. --Plan is to continue surgery as planned. -------- --------- Scribe Attestation: Documented by Gulshan Leroy, acting as a scribe Rao Real MD. Provider Scribe Attestation: All medical record entries made by the Scribe were at my direction and persona lly dictated by me. I have reviewed the chart and agree that the record accurately reflects my personal performance of the history, physical exam, medical decision making, and the department course for this patient. I have also personally directed, reviewed, and agree with the discharge instructions and disposition. Disposition - Clinical Impression Clinical Impression: Abdominal pain in female, Ovarian cyst - Disposition Disposition Time: 16:34 Condition: IMPROVED Additional Instructions: Take Motrin for moderate pain. Take Percocet only for severe pain and with caution as it has a high risk of addiction. Do not drive or perform dangerous activities if you take Percocet as it will make you drowsy. Follow up with gynecology for surgery as scheduled. Prescriptions: Oxycodone HCl/Acetaminophen [Percocet 10-325 mg Tablet] 1 each PO Q6 #30 tablet Instructions: Ovarian Cyst (DC) Forms: [employer] (Ugandan) Print Language: YAKUT
[2018-10-24 11:37] LABS: BASO % 0.3 % (0.0-2.0); EOS # 0.1 K/uL (0.0-0.7); EOS % 1.1 % (0.0-4.0); HEMOGLOBIN 11.7 g/dL (12.0-16.0); LYMPH # 1.9 K/uL (1.0-4.3); LYMPH % 27.9 % (20.0-40.0); MEAN CELL VOLUME 77.9 fl (81.0-99.0); MEAN CORPUSCULAR HEMOGLOBIN 25.8 pg (27.0-31.0); MEAN CORPUSCULAR HGB CONC 33.2 g/dL (33.0-37.0); MEAN PLATELET VOLUME 7.6 fl (7.2-11.7); MONO # 0.4 K/uL (0.0-0.8); MONO % 6.7 % (0.0-10.0); NEUT # 4.3 K/uL (1.8-7.0); NRBC % 0.1 % (0.0-0.0); RBC 4.53 Mil/uL (3.80-5.20); RED CELL DISTRIBUTION WIDTH 14.9 % (11.5-14.5); WHITE BLOOD COUNT 6.7 K/uL (4.8-10.8)
[2018-10-24 11:49] LABS: ALB/GLOB RATIO 1.3 (1.0-2.1); ALBUMIN 4.3 g/dL (3.5-5.0); ALT/SGPT 25 U/L (9-52); AST/SGOT 20 U/L (14-36); BLOOD UREA NITROGEN 11 mg/dl (7-17); CALCIUM 9.5 mg/dL (8.4-10.2); GFR NON-AFRICAN AMERICAN > 60
--- NOTE | 2018-10-24 14:52 | US ---
Date of service: 10/24/2018 HISTORY: rule out ovarian torsion COMPARISON: 10/14/2018 TECHNIQUE: Transabdominal and transvaginal FINDINGS: UTERUS: Measures 8.7 x 5.5 x 5.8 cm. Homogeneous echotexture. Mildly retroverted. There is and anterior sub serosal uterine fibroid, 1.6 x 2.0 x 2.0 cm. There is no other mass identified. ENDOMETRIUM: Measures 9 mm in diameter. Unremarkable. CERVIX: No cervical abnormality identified. RIGHT OVARY: Measures 3.6 x 4.4 x 3.0 cm. No solid mass. Normal flow. Simple cyst, 2.3 x 2.7 x 3.0 cm. Low-level echoes seen throughout this cystic structure on prior ultrasound examination are no longer evident, consistent with resolving hemorrhagic cyst. LEFT OVARY: Measures 3.6 x 2.0 x 1.8 cm. No solid mass. Normal flow. FREE FLUID: No significant free fluid noted. OTHER FINDINGS: None. IMPRESSION: 2.7 cm right ovarian simple cyst, previously demonstrating low-level internal echoes on 10/14/2018. Consistent with resolving hemorrhagic cyst. Incidental small anterior subserosal uterine fibroid.
--- NOTE | 2018-10-24 16:20 | CP.PCM.CON ---
History of Present Illness - History of Present Illness History of Present Illness: Rose Mary is a 38 year old female who presents to the ED with 2 days of heavy menstrual bleeding and dysmenorrhea. She recently saw Dr. Cunningham in the office for this same complaint. She has a previous diagnosis of hydrosalpinx, bilateral, and they discussed doing a bilateral salpingectomy and likely myomectomy. She is scheduled for next Sunday. She came today because of heavier than normal bleeding and severe pain. Denies dizziness, nausea or vomiting. Review of Systems - Constitutional Constitutional: As Per HPI - Cardiovascular Cardiovascular: As Per HPI - Respiratory Respiratory: As Per HPI - Genitourinary Genitourinary: As Per HPI - Reproductive: Female Reproductive:Female: As Per HPI Past Patient History - Infectious Disease Hx of Infectious Diseases: None - Past Medical History & Family History Past Medical History?: Yes - Past Social History Smoking Status: Never Smoked - CARDIAC Hx Cardiac Disorders: No - PULMONARY Hx Respiratory Disorders: No - NEUROLOGICAL Hx Neurological Disorder: No - HEENT Hx HEENT Problems: No - RENAL Hx Chronic Kidney Disease: No - HEMATOLOGICAL/ONCOLOGICAL Hx Anemia: Yes - INTEGUMENTARY Hx Dermatological Problems: No - MUSCULOSKELETAL/RHEUMATOLOGICAL Hx Musculoskeletal Disorders: No Hx Falls: No - GASTROINTESTINAL Hx Gastrointestinal Disorders: No - GENITOURINARY/GYNECOLOGICAL Hx Genitourinary Disorders: Yes - PSYCHIATRIC Hx Substance Use: No - SURGICAL HISTORY Hx Cholecystectomy: Yes - ANESTHESIA Hx Anesthesia: Yes Hx Anesthesia Reactions: No Hx Malignant Hyperthermia: No Meds Home Medications: Home Medication List Medication Instructions Recorded Confirmed Type Oxycodone HCl/Acetaminophen 1 each PO Q6 #30 tablet 10/24/18 Rx [Percocet 10-325 mg Tablet] Allergies/Adverse Reactions: Allergies Allergy/AdvReac Type Severity Reaction Status Date / Time No Known Allergies Allergy Verified 09/17/18 22:34 Physical Exam - Constitutional Appears: Well, Non-toxic - Head Exam Head Exam: ATRAUMATIC - Eye Exam Eye Exam: EOMI, Normal appearance - ENT Exam ENT Exam: Mucous Membranes Moist - Neck Exam Neck exam: Positive for: Full Rom - Respiratory Exam Respiratory Exam: NORMAL BREATHING PATTERN - Cardiovascular Exam Cardiovascular Exam: REGULAR RHYTHM - GI/Abdominal Exam GI & Abdominal Exam: Soft. absent: Guarding, Rebound, Rigid, Tenderness Results - Vital Signs Recent Vital Signs: Last Vital Signs Temp 98.4 F 10/24/18 10:37 Pulse 87 10/24/18 10:37 Resp 18 10/24/18 10:37 BP 125/76 10/24/18 10:37 Pulse Ox 99 10/24/18 15:36 - Labs Result Diagrams: 10/24/18 11:30 10/24/18 11:30 Labs: Laboratory Results - last 24 hr 10/24/18 10/24/18 11:30 11:30 WBC 6.7 RBC 4.53 Hgb 11.7 L Hct 35.3 MCV 77.9 L MCH 25.8 L MCHC 33.2 RDW 14.9 H Plt Count 309 MPV 7.6 Neut % (Auto) 64.0 Lymph % (Auto) 27.9 Blanco % (Auto) 6.7 Eos % (Auto) 1.1 Baso % (Auto) 0.3 Neut # (Auto) 4.3 Lymph # (Auto) 1.9 Blanco # (Auto) 0.4 Eos # (Auto) 0.1 Baso # (Auto) 0.0 Sodium 138 Potassium 4.1 Chloride 103 Carbon Dioxide 27 Anion Gap 12 BUN 11 Creatinine 0.7 Est GFR ( Amer) > 60 Est GFR (Non-Af Amer) > 60 Random Glucose 93 Calcium 9.5 Total Bilirubin 0.4 AST 20 ALT 25 Alkaline Phosphatase 83 Total Protein 7.5 Albumin 4.3 Globulin 3.2 Albumin/Globulin Ratio 1.3 - Impressions Impression: Transvaginal US - small subserosal fibroid and a small hemorrhagic cyst which appears to be resolving, report was reviewed by me Assessment & Plan (1) Abdominal pain in female Assessment and Plan: 38 year old nongravid female presents with severe uterine cramping and heavy menstrual bleeding. OBGYN was consulted for recommendations on further management. This patient has already established with an outpatient OBGYN and is planning on having a laparoscopy next Sunday with possible myomectomy and possible bilateral salpingectomy. Her heavy menstrual cramping and bleeding would fit with her known history of fibroids and her Hgb is stable at 11.7 today, suggesting a nonclinically significant amount of blood loss at this time. By the time of the interview and exam the patient's pain had considerably improved, she did not have an acute abdomen and she felt comfortable with discharge and follow-up with her surgeon. No further testing/imaging was recommended from an OBGYN standpoint. - Patient was given a prescription for Provera 10mg qday until her surgery to help with her abnormal uterine bleeding - Per discussion with the ER physician they will prescribe her something for her pain for discharge - Patient instructed to f/u with her OBGYN for further management Plan discussed with attending, Dr. Bernard. Status: Acute
[2018-10-24 17:18] VITALS: BP 122/78; PULSE 82
== END 2018-10-24 16:38 | disposition home or self-care (01) ==
LOC: H.ER 10:28
DX: D25.2 Subserosal leiomyoma of uterus (principal); N83.209 Unspecified ovarian cyst, unspecified side; N92.0 Excessive and frequent menstruation with regular cycle; D64.9 Anemia, unspecified
CPT/HCPCS: 76830; 76856; 80053; 81025; 85025; 96374; 96376; 99284; J2270

== ENCOUNTER 2018-11-01 07:36 | Observation (INO) | payer OTHER ==
[2018-11-01 08:23] VITALS: BMI 22.1
[2018-11-01] MEDS ORDERED: Propofol 10 mg/ml Inj (20 ML) ONE (09:55)
[2018-11-01] MEDS ORDERED: Rocuronium 10 mg/ml (5 ml) ONE (09:56)
[2018-11-01] MEDS ORDERED: ePHEDrine 50 mg/ml Inj ONE (09:56)
[2018-11-01] MEDS ORDERED: Midazolam 2 MG/2 ML VIAL ONE (09:56)
[2018-11-01] MEDS ORDERED: Lidocaine 4% (Laryng-O-Jet) Kit MM ONE (09:58)
[2018-11-01] MEDS ORDERED: Neostigmine 1:1000 (1 mg/ml) Inj ONE (09:58)
[2018-11-01] MEDS ORDERED: Succinylcholine 200 mg/10 ml Inj IV ONE (09:58)
[2018-11-01] MEDS ORDERED: Lidocaine 1% Inj (20ml) ONE (09:58)
[2018-11-01] MEDS ORDERED: Bupivacaine 0.5% Inj(30mL) ONE (10:15)
[2018-11-01] MEDS ORDERED: Lactated Ringer's 1,000 ML IV ONE ×3 (11:00→13:16)
[2018-11-01] MEDS ORDERED: Dexamethasone 4 mg/1 ml ONE (11:33)
[2018-11-01] MEDS ORDERED: Methylene Blue 10 mg/mL(10ml) IV ONE (12:36)
[2018-11-01] MEDS: HYDROmorphone 0.5 mg/0.5 ml ISec IVP PRN ×6 (13:22→14:25)
[2018-11-01] MEDS ORDERED: HYDROmorphone 0.5 mg/0.5 ml ISec ONE ×5 (13:22→14:02)
[2018-11-01] MEDS ORDERED: Lactated Ringer's 1,000 ML IV SCH (13:45)
[2018-11-01 15:13] LABS: MEAN CELL VOLUME 78.1 fl (81.0-99.0); MEAN CORPUSCULAR HEMOGLOBIN 25.8 pg (27.0-31.0); RBC 4.25 Mil/uL (3.80-5.20); WHITE BLOOD COUNT 8.3 K/uL (4.8-10.8)
[2018-11-01] MEDS: Oxycodone/Acetaminophen 5/325 mg Tab PO PRN (19:02)
[2018-11-01] MEDS: Lactated Ringer's 1,000 ML IV SCH (21:21)
--- NOTE | 2018-11-01 21:37 | CP.PCM.PN ---
<Juju Galicia - Last Filed: 11/01/18 21:40> Subjective - Date & Time of Evaluation Date of Evaluation: 11/01/18 Time of Evaluation: 21:15 - Subjective Subjective: 38 y/o female s/pod #0 of davinici endometriosis/chromotubation and cystoscopy w/ bilateral uretral dye injection. Seen and examined at bedside. Charts, labs, and nurse notes reviewed. Patient c/o epigastric pain, one episode of vomiting after drinking milk, and pain at incision sites. She admits to history of GERD. She denies chest pain, SOB, palpitations. She is afebrile. Objective - Vital Signs/Intake and Output Vital Signs (last 24 hours): Temp Pulse Resp BP Pulse Ox 98.3 F 88 18 115/68 99 11/01/18 17:38 11/01/18 17:38 11/01/18 17:38 11/01/18 17:38 11/01/18 17:38 Intake and Output: 11/01/18 11/02/18 18:59 06:59 Intake Total 3020 Output Total 1250 Balance 1770 - Medications Medications: Current Medications Lactated Ringer's (Lactated Ringer's) 1,000 mls @ 125 mls/hr IV .Q8H SUSAN Last Admin: 11/01/18 21:21 Dose: 125 mls/hr Ketorolac Tromethamine (Toradol) 30 mg IVP Q6 PRN PRN Reason: Pain, Mild (1-3) Last Admin: 11/01/18 16:15 Dose: 30 mg Oxycodone/Acetaminophen (Percocet 5/325 Mg Tab) 1 tab PO Q4 PRN PRN Reason: Pain, moderate (4-7) Stop: 11/04/18 14:22 Last Admin: 11/01/18 19:02 Dose: 1 tab - Labs Labs: 11/01/18 15:06 - Constitutional Appears: No Acute Distress - ENT Exam ENT Exam: Mucous Membranes Moist - Respiratory Exam Respiratory Exam: Clear to Ausculation Bilateral, NORMAL BREATHING PATTERN - Cardiovascular Exam Cardiovascular Exam: REGULAR RHYTHM, +S1, +S2 - GI/Abdominal Exam GI & Abdominal Exam: Soft, Tenderness, Diminished Bowel Sounds. absent: Distended, Guarding, Rigid - Neurological Exam Neurological Exam: Alert, Awake Assessment and Plan - Assessment and Plan (Free Text) Assessment: 38 y/o female s/pod #0 of davinici endometriosis/chromotubation and cystoscopy w/ bilateral uretral dye injection c/o 1 episode of vomiting Plan: Post-operative nausea and vomiting Start Zofran 4mg IV Q4H PRN Liquid diet for now, will advance as tolerated Cont. IV fluid maintenance w/ 1L LR @125 mL/hr Patient has hx of GERD; will start Protonix 40mg IV QD Cont pain management w/ Toradol 30 mg IV Q6 PRN for mild pain, Percocet 5/325mg PO Q4 PRN for moderate pain Will cont to monitor patient Case discussed w/ attending, Dr. Julee Galicia, selvinyi <Demarco Ladd - Last Filed: 11/02/18 07:53> Objective - Vital Signs/Intake and Output Vital Signs (last 24 hours): Temp Pulse Resp BP Pulse Ox 98.9 F 107 H 17 100/56 L 100 11/02/18 05:00 11/02/18 05:00 11/02/18 05:00 11/02/18 05:00 11/02/18 05:00 - Medications Medications: Current Medications Ketorolac Tromethamine (Toradol) 30 mg IVP Q6 PRN PRN Reason: Pain, Mild (1-3) Last Admin: 11/01/18 22:23 Dose: 30 mg Ondansetron HCl (Zofran Inj) 4 mg IVP Q4 PRN PRN Reason: Nausea/Vomiting Last Admin: 11/01/18 22:25 Dose: 4 mg Oxycodone/Acetaminophen (Percocet 5/325 Mg Tab) 1 tab PO Q4 PRN PRN Reason: Pain, moderate (4-7) Stop: 11/04/18 14:22 Last Admin: 11/01/18 19:02 Dose: 1 tab Pantoprazole Sodium (Protonix Inj) 40 mg IVP DAILY SUSAN - Labs Labs: 11/01/18 15:06 Assessment and Plan - Assessment and Plan (Free Text) Plan: OB Hospialist note: P seen on rounds post op. sh just has ome epigastric/lower abd discomfort. PE In NAD..abd soft incisions intact A: S/P robotic surgery for endometriosis/pelvic pain PLAN; agree with PGY1 note; increase diet in AM MAHNDO
[2018-11-02] MEDS: Lactated Ringer's 1,000 ML IV SCH (05:45)
[2018-11-02 08:55] VITALS: RESP 18
--- NOTE | 2018-11-02 12:00 | OP ---
PROCEDURE DATE: 11/01/18 PREOPERATIVE DIAGNOSES: Chronic pelvic pain, complex ovarian cyst. POSTOPERATIVE DIAGNOSES: Pelvic pain secondary to endometriosis. There were extensive adnexal adhesions with crazy appearance of complex cyst on imaging but in the operating room what was noted were extensive adhesions. PROCEDURES: Resection of endometriosis, lysis of adhesions and chromopertubation. SURGEON: Matt Cunningham MD STEEP TENDER: Demarco Ladd DO. He was helpful in creating exposure, obtaining hemostasis, extraction of the specimen and closure of the patient. The procedure would not have been possible without his assistance. OPERATIVE FINDINGS: Stage 4 endo, adhesions from ovaries adherent to the posterior aspect of the uterus. 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 Compound lesion noted anterior to the bladder. ESTIMATED BLOOD LOSS: 50 mL. URINE OUTPUT: Muller catheter put out approximately 600 mL of clear urine. INTRAVENOUS FLUID INTAKE: The patient received approximately 1200 mL of D5 LR intraoperatively. DESCRIPTION OF PROCEDURE: After informed consent was obtained, the patient was taken to the operating room where she was given general anesthesia. The patient was placed in the [facility]. She was then prepped and draped in a normal sterile fashion. Attention was then turned to the urethra where cystoscope was inserted through the right. The left ureteral orifice was identified and stented with a 5-Mohawk catheter. 5 mL of ICG-green was injected. Attention was then turned to right periureteral orifice which in similar fashion was stented and injected with 5 mL of ICG-green. The cystoscope was then removed from the bladder. A speculum was inserted in the vagina, cervix was visualized, grasped with a single-tooth tenaculum and gently dilated. A HUMI uterine manipulator was inserted in the uterine cavity as means to manipulate the uterus. Attention was then turned to the umbilicus. Approximately 3 cm superior to the umbilicus, Marcaine was infused and an 8 mm incision was made. A Veress needle was introduced in the abdominal cavity. Placement was confirmed with a fluid-filled syringe. The abdomen was then insufflated to 20 mmHg. The Veress needle was removed and the 8 mm robotic port was introduced in the abdominal cavity. Pressure was confirmed with laparoscope. The abdomen was then surveyed with the findings noted above, there were extensive adhesions. The bowel was noted to be adherent to the posterior aspect of the uterus. Using the scissors and a bowel retractor, the bowel was gently dissected away from the uterus, using both sharp and blunt dissections. The cul-de-sac was then surveyed and there was noted to be extensive inflammatory endometriosis. The ovary was fused to the ovarian fossa and there were extensive protuberant lesions in the region. The peritoneum and the ovarian fossa was then elevated and then resected and sent to pathology for evaluation. Attention was then turned to the right side of the pelvis which in similar fashion, the bowel was adherent. It was gently dissected away from the sidewall. The adnexa was then exposed and there was noted to be significant endometriosis which is in similar fashion was grasped with PK dissector, elevated out, resected away from the side wall. The areas were clearly identified using the ICG-green and Firefly technology. The anterior aspect of the abdomen was then surveyed and the endometriotic implant was noted along the anterior abdominal wall and it was resected and the nodule was sent to pathology for evaluation. The abdomen was then copiously irrigated. The irrigant was removed with the suction device. The abdomen was noted to be hemostatic. All instruments were then removed from the abdomen. The incisions were repaired with 3-0 Biosyn and Dermabond. All sponge, lap, needle, and instrument counts were correct x2 and the patient was taken to the recovery room in awake and stable condition. Matt Cunningham MD
--- NOTE | 2018-11-02 16:18 | CP.PCM.DIS ---
Provider - Provider Date of Admission: 11/01/18 14:21 Attending physician: Matt Chawla MD Time Spent in preparation of Discharge (in minutes): 30 Diagnosis - Discharge Diagnosis (1) Endometriosis Status: Acute Hospital Course - Lab Results Lab Results: Most Recent Lab Values WBC 8.3 K/uL (4.8-10.8) 11/01/18 15:06 RBC 4.25 Mil/uL (3.80-5.20) 11/01/18 15:06 Hgb 11.0 g/dL (12.0-16.0) L 11/01/18 15:06 Hct 33.2 % (34.0-47.0) L 11/01/18 15:06 MCV 78.1 fl (81.0-99.0) L 11/01/18 15:06 MCH 25.8 pg (27.0-31.0) L 11/01/18 15:06 MCHC 33.0 g/dL (33.0-37.0) 11/01/18 15:06 RDW 15.0 % (11.5-14.5) H 11/01/18 15:06 Plt Count 291 K/uL (130-400) 11/01/18 15:06 Blood Type O POSITIVE 11/01/18 09:45 Antibody Screen Negative 11/01/18 09:45 BBK History Checked Patient has bt 11/01/18 09:45 - Hospital Course Hospital Course: 38 y/o F admitted for pelvic pain. Patient undergo davinici endometriosis/chromotubation and cystoscopy w/ bilateral uretral dye injection. There were extensive adhesions which were lysed and specimen were obtained. Patient tolerated procedure well. Patient had once episode of nausea and vomiting 11/01/18 which improved after Zofran. Patient's diet advanced on 11/02/18 which she tolerated well w/o N/V. Patient continued have mild-moderate abdominal pain which is well controlled with Ibuprofen and percocet. Patient ambulating well. Incision C/D/I Denies any new symptomatology or complains. Patient stable to discharged home on Ibuprofen, Percocet and colace. Discharge medications - Ibuprofen 800 mg TID # 30 - Percicet 5-325 mg tab, Q4 hr PRN # 20 - Colace 100 mg BID # 20 Discharge Exam - Head Exam Head Exam: ATRAUMATIC, NORMAL INSPECTION - Eye Exam Eye Exam: PERRL - Respiratory Exam Respiratory Exam: Clear to PA & Lateral, UNREMARKABLE - Cardiovascular Exam Cardiovascular Exam: REGULAR RHYTHM, +S1, +S2 - GI/Abdominal Exam GI & Abdominal Exam: Guarding, Normal Bowel Sounds, Soft, Tenderness. absent: Distended, Firm Additional comments: Incision C/D/I - Neurological Exam Neurological exam: Alert, Oriented x3 - Psychiatric Exam Psychiatric exam: Normal Affect, Normal Mood - Skin Skin Exam: Dry, Intact, Normal Color Discharge Plan - Discharge Medications Prescriptions: Docusate Sodium [Colace] 100 mg PO BID #20 capsule Ibuprofen [Motrin Tab] 800 mg PO TID #30 tab oxyCODONE/Acetaminophen [Percocet 5/325 mg Tab] 1 tab PO Q4 PRN #20 tab PRN Reason: Pain, Moderate (4-7) - Follow Up Plan Condition: GOOD Disposition: HOME/ ROUTINE Patient education suggested?: Yes Instructions: Endometriosis, Robot-Assisted Surgery, How to Prevent Surgical Site Infections, Surgical Wound (DC), Docusate, Ibuprofen, Oxycodone and Acetaminophen, Cystoscopy (DC) Additional Instructions: ANY PROBLEMS- FEVER 100.4 OR MORE, SEVERE PAIN,VAGINAL BLEEDING, ABDOMINAL P UNCTURE SITE WITH DRAINAGE/BLEEDING/OR REDNESS,UNABLE TO VOID,OR ANY PROBLEMS CALL DOCTOR OR GO TO EMERGENCY ROOM 911 FOR EMERGENCY ROOM FOLLOW UP WITH DR. CHAWLA IN 1 WEEK CALL FOR APPOINTMENT NO HEAVY LIFTING OR STRENUOUS EXERCISE NO TUB BATH NO DOUCHING NO TAMPONS NO SEX HOME MEDICATIONS: MOTRIN 800 MG BY MOUTH EVERY 8 HOURS TAKE WITH FOOD NEEDED PERCOCET 1 TABLET EVERY 4 HOURS NEEDED FOR PAIN COLACE 1 TABLET TWICE A DAY
[2018-11-02] MEDS: Oxycodone/Acetaminophen 5/325 mg Tab PO PRN (17:41)
[2018-11-03 00:05] VITALS: BP 122/72; PULSE 72; TEMP 98.4; O2SAT 100
== END 2018-11-02 20:00 | disposition home or self-care (01) ==
LOC: H.OPSURG 07:36 → H.PEDS 14:21 → H.OPSURG 17:11
PROVIDERS: ADMIT Obstetrics & Gynecology Gynecology; ATTEND Obstetrics & Gynecology Gynecology
DX: R10.2 Pelvic and perineal pain (principal); N83.209 Unspecified ovarian cyst, unspecified side; N70.11 Chronic salpingitis; N93.9 Abnormal uterine and vaginal bleeding, unspecified; N80.9 Endometriosis, unspecified; N80.0 Endometriosis of uterus; N83.299 Other ovarian cyst, unspecified side; G89.29 Other chronic pain; K21.9 Gastro-esophageal reflux disease without esophagitis; K66.0 Peritoneal adhesions (postprocedural) (postinfection)
CPT/HCPCS: 36415; 58350; 58662; 85027; 86850; 86900; 88305; C1729; C9113; G0378; J0330; J0690; J1100; J1170; J1885; J2001; J2250; J2405; J2704; J2710; J3010; J7120